=== PATIENT | female | born 1935 | race Caucasian/White ===

== ENCOUNTER 2018-07-29 01:22 | Observation (INO) ==
--- NOTE | 2018-07-29 01:25 | Emergency Department Note ---
Disposition Clinical Impression: Acute exacerbation of chronic obstructive airways disease Disposition: Admitted As Inpatient Condition: Fair General Adult HPI - General Stated complaint: bridgett Time Seen by Provider: 07/29/18 01:23 - Related Data Home Medications Medication Instructions Recorded Confirmed Losartan [Cozaar] 100 mg PO DAILY 01/07/15 07/30/18 Magnesium Oxide [Magnesium] 500 mg PO DAILY 02/24/16 07/30/18 Furosemide [Lasix] 20 mg PO DAILY 07/25/18 07/30/18 Gabapentin [Neurontin] 100 mg PO 0800,1500 07/25/18 07/30/18 Gabapentin [Neurontin] 100 mg PO HS 07/25/18 07/30/18 Glimepiride [Amaryl] 1 mg PO QAM 07/25/18 07/30/18 Nystatin POWDER [Nystop] 1 appl TP TID PRN 07/25/18 07/30/18 Oxybutynin [Ditropan] 5 mg PO TID 07/25/18 07/30/18 Zolpidem Tartrate 5 mg PO HS PRN 07/25/18 07/30/18 Albuterol Sulfate [Albuterol 2 puff IH Q6H PRN 07/29/18 07/30/18 Inhaler] Ascorbic Acid [Vitamin C] 500 mg PO DAILY 07/29/18 07/30/18 Aspirin [Lo-Dose Aspirin EC] 81 mg PO DAILY 07/29/18 07/30/18 Cyanocobalamin/Folic Acid [B-12 1 each SL DAILY 07/29/18 07/30/18 1,000 Mcg Sub Tablet] Multivitamin [Daily Multiple 1 each PO DAILY 07/29/18 07/30/18 Vitamin] Lactobacillus Combination No.8 1 cap PO DAILY 07/30/18 07/30/18 [Adult Probiotic] Previous Rx's Medication Instructions Recorded Budesonide/Formoterol 160/4.5 2 puff IH BIDR #1 hfa.aer.ad 07/25/18 [Symbicort 160/4.5] Carvedilol 3.125 mg PO BID #10 tab 07/30/18 Allergies Allergy/AdvReac Type Severity Reaction Status Date / Time doxycycline Allergy Rash Verified 10/08/17 14:23 Penicillins [PCN] Allergy Difficulty Verified 10/08/17 14:23 Breathing metformin AdvReac Diarrhea Verified 10/08/17 14:23 nitrofurantoin AdvReac Anaphylaxis Verified 10/08/17 14:23 sulfamethoxazole AdvReac Diarrhea Verified 10/08/17 14:23 [From Bactrim] trimethoprim [From Bactrim] AdvReac Diarrhea Verified 10/08/17 14:23 Past Medical History - Past Medical History Medical history: Reports: arthritis, diabetes, hyperlipidemia, hypertension, venous stasis, other Surgical history: Reports: cholecystectomy, herniorrhaphy, knee replacement, other Psychiatric history: Reports: anxiety, depression - Social History Smoking Status: Never smoker Smokeless Tobacco Status: No Alcohol use: Reports: none Drug use: Reports: none Course Vital Signs Temperature 98.8 F 07/29/18 01:26 Pulse Rate 86 07/29/18 01:26 Respiratory Rate 22 07/29/18 01:26 Blood Pressure 150/96 07/29/18 01:26 O2 Sat by Pulse Oximetry 93 07/29/18 01:26 Temperature 98.2 F 07/30/18 12:13 Pulse Rate 76 07/30/18 12:13 Respiratory Rate 16 07/30/18 12:13 Blood Pressure 164/82 07/30/18 12:13 O2 Sat by Pulse Oximetry 95 07/30/18 12:13 Oxygen Delivery Oxygen Delivery Nasal Cannula Medical Decision Making - Lab Data Result diagrams: 07/30/18 05:42 07/30/18 05:42 Lab Results 07/29/18 07/29/18 07/29/18 Range/Units 01:45 01:45 01:45 WBC 10.8 (4.3-11.1) K/mcL RBC 4.58 (3.82-4.97) M/mcL Hgb 12.9 (11.5-15.4) g/dL Hct 43.1 (35.3-44.9) % MCV 94.1 (83.0-100.0) fL MCH 28.2 (28.0-33.3) pg MCHC 29.9 L (31.6-35.5) g/dL RDW 14.5 (11.5-14.5) % Plt Count 263 (140-400) K/mcL MPV 9.1 L (9.4-12.4) fL Immature Gran % 0.6 (0-4) % Seg Neutrophils % 75.4 % Lymphocytes % 17.3 % Monocytes % 6.3 % Eosinophils % 0.3 % Basophils % 0.1 % Neutrophils # 8.2 (1.6-8.9) K/mcL Lymphocytes # 1.9 (0.6-4.6) K/mcL Monocytes # 0.7 (0.0-1.3) K/mcL Eosinophils # 0.0 (0.0-0.6) K/mcL Basophils # 0.0 (0.0-0.2) K/mcL Sodium 138 (136-145) mEq/L Potassium 4.8 (3.5-5.1) mEq/L Chloride 95 L (98-107) mEq/L Carbon Dioxide 38 H (23-29) mEq/L BUN 35 H (8-23) mg/dL Creatinine 0.93 (0.60-1.20) mg/dL Est GFR ( Amer) > 60 (> 60) Est GFR (Non-Af Amer) 58 L (> 60) BUN/Creatinine Ratio 38 H (6-26) Glucose 152 H (70-105) mg/dL Calculated Osmolality 297 (280-300) Calcium 9.8 (8.6-10.3) mg/dL Total Bilirubin (0.3-1.0) mg/dL Direct Bilirubin (0.0-0.2) mg/dL Indirect Bilirubin (0.0-1.2) mg/dL AST (13-39) Units/L ALT (7-52) Units/L Alkaline Phosphatase (34-104) Units/L Troponin I < 0.03 (< 0.04) ng/mL B-Natriuretic Peptide 79 (Less than 100) pg/mL Serum Total Protein (6.4-8.9) g/dL Albumin (3.5-5.7) g/dL Globulin (2.4-3.5) g/dL Albumin/Globulin Ratio (1.1-2.2) 07/29/18 Range/Units 01:45 WBC (4.3-11.1) K/mcL RBC (3.82-4.97) M/mcL Hgb (11.5-15.4) g/dL Hct (35.3-44.9) % MCV (83.0-100.0) fL MCH (28.0-33.3) pg MCHC (31.6-35.5) g/dL RDW (11.5-14.5) % Plt Count (140-400) K/mcL MPV (9.4-12.4) fL Immature Gran % (0-4) % Seg Neutrophils % % Lymphocytes % % Monocytes % % Eosinophils % % Basophils % % Neutrophils # (1.6-8.9) K/mcL Lymphocytes # (0.6-4.6) K/mcL Monocytes # (0.0-1.3) K/mcL Eosinophils # (0.0-0.6) K/mcL Basophils # (0.0-0.2) K/mcL Sodium (136-145) mEq/L Potassium (3.5-5.1) mEq/L Chloride (98-107) mEq/L Carbon Dioxide (23-29) mEq/L BUN (8-23) mg/dL Creatinine (0.60-1.20) mg/dL Est GFR ( Amer) (> 60) Est GFR (Non-Af Amer) (> 60) BUN/Creatinine Ratio (6-26) Glucose (70-105) mg/dL Calculated Osmolality (280-300) Calcium (8.6-10.3) mg/dL Total Bilirubin 0.3 (0.3-1.0) mg/dL Direct Bilirubin 0.0 (0.0-0.2) mg/dL Indirect Bilirubin 0.3 (0.0-1.2) mg/dL AST 20 (13-39) Units/L ALT 16 (7-52) Units/L Alkaline Phosphatase 60 (34-104) Units/L Troponin I (< 0.04) ng/mL B-Natriuretic Peptide (Less than 100) pg/mL Serum Total Protein 7.9 (6.4-8.9) g/dL Albumin 3.9 (3.5-5.7) g/dL Globulin 4.0 H (2.4-3.5) g/dL Albumin/Globulin Ratio 1.0 L (1.1-2.2) Attestation Statement - Attestation Attestation: I reviewed the residents documentation and agree with the residents assessment and plan of care. I have personally had face to face time with the patient. (Brief History, Brief Exam, and MDM) I personally supervised and was present for the peck/critical portions of the following procedures completed by the resident: (add procedures performed here). [id number] time provided Patient arrives from home by EMS complaining of dyspnea. She appears in no acute distress upon arrival. She was evaluated in conjunction with the resident physician. I attest a supervising the resident physician's interpretation of the ECG
[2018-07-29] MEDS ORDERED: methylPREDNISolone 125 MG/2 ML VIAL IVP ONE (01:29)
[2018-07-29] MEDS ORDERED: Ipratropium/Albuterol Neb 3 ML IH ONE (01:29)
--- NOTE | 2018-07-29 01:34 | Emergency Department Note ---
Disposition Clinical Impression: Acute exacerbation of chronic obstructive airways disease Disposition: Admitted As Inpatient Condition: Fair Time of Disposition: 08:46 General Adult HPI - General Stated complaint: bridgett Time Seen by Provider: 07/29/18 01:23 Source: patient, EMS Mode of arrival: EMS Limitations: no limitations Nursing Notes Reviewed: Yes Vital Signs Reviewed: Yes - History of Present Illness HPI Narrative: 82-year-old female past medical history of COPD and diabetes 3-4 day history of gradually progressive worsening dyspnea Patient states that tonight before going to bed and shortness of breath suddenly became worse Patient transported ED via EMS given 1 DuoNeb in route EMS states patient was an 80% range on room air at home prior to DuoNeb Post DuoNeb oxygen saturations in the high 90% range Patient does not wear home oxygen continuously Patient denies recent fever/chills, new neck or back pain, chest pain, abdominal pain/nausea/vomiting, blood in her urine or stool, numbness or paresthesias. Onset (ago): day(s) Consistency: Worsening Improves with: medication Associated symptoms: Reports: denies other symptoms - Related Data Home Medications Medication Instructions Recorded Confirmed Losartan [Cozaar] 100 mg PO DAILY 01/07/15 07/29/18 Magnesium Oxide [Magnesium] 500 mg PO DAILY 02/24/16 07/25/18 Furosemide [Lasix] 20 mg PO DAILY 07/25/18 07/29/18 Gabapentin [Neurontin] 100 mg PO 0800,1500 07/25/18 07/29/18 Gabapentin [Neurontin] 300 mg PO HS 07/25/18 07/29/18 Glimepiride [Amaryl] 1 mg PO DAILY 07/25/18 07/29/18 Nystatin POWDER [Nystop] 1 appl TP TID PRN 07/25/18 07/25/18 Oxybutynin [Ditropan] 5 mg PO TID 07/25/18 07/29/18 Zolpidem Tartrate 5 mg PO HS PRN 07/25/18 07/29/18 Albuterol Sulfate [Albuterol 2 puff IH Q6H PRN 07/29/18 07/29/18 Inhaler] Ascorbic Acid [Vitamin C] 500 mg PO DAILY 07/29/18 07/29/18 Aspirin 81 mg PO DAILY 07/29/18 07/29/18 Multivitamin Women 50 Plus Tab 1 tab PO DAILY 07/29/18 07/29/18 Probiotic 1 cap PO DAILY 07/29/18 07/29/18 Vitamin B12 1,000 mcg PO DAILY 07/29/18 07/29/18 Previous Rx's Medication Instructions Recorded Budesonide/Formoterol 160/4.5 2 puff IH BIDR #1 hfa.aer.ad 07/25/18 [Symbicort 160/4.5] predniSONE [PredniSONE] 40 mg PO DAILY #10 tablet 07/25/18 Allergies Allergy/AdvReac Type Severity Reaction Status Date / Time doxycycline Allergy Rash Verified 10/08/17 14:23 Penicillins [PCN] Allergy Difficulty Verified 10/08/17 14:23 Breathing metformin AdvReac Diarrhea Verified 10/08/17 14:23 nitrofurantoin AdvReac Anaphylaxis Verified 10/08/17 14:23 sulfamethoxazole AdvReac Diarrhea Verified 10/08/17 14:23 [From Bactrim] trimethoprim [From Bactrim] AdvReac Diarrhea Verified 10/08/17 14:23 All systems ED: reviewed and negative except as stated. Review of Systems: As Per HPI Constitutional: Denies: fever, chills Cardiovascular: Denies: chest pain Respiratory: Reports: dyspnea Gastrointestinal: Denies: abdominal pain, nausea, vomiting, hematochezia Genitourinary: Denies: hematuria Musculoskeletal: Denies: back pain, neck pain Neurological: Denies: headache, weakness, numbness, paresthesias Past Medical History - Past Medical History Medical history: Reports: arthritis, diabetes, hyperlipidemia, hypertension, venous stasis, other Surgical history: Reports: cholecystectomy, herniorrhaphy, knee replacement, other Psychiatric history: Reports: anxiety, depression - Social History Smoking Status: Never smoker Smokeless Tobacco Status: No Alcohol use: Reports: none Drug use: Reports: none Physical Exam - General Limitations: no limitations General appearance: alert, in no apparent distress - Head Head exam: atraumatic, normocephalic, normal inspection - Eye Eye exam: Present: normal appearance, PERRL, EOMI. Absent: scleral icterus - Neck Neck exam: Present: normal inspection, trachea midline - Chest Chest inspection: Present: normal inspection, symmetric chest wall rise - Respiratory Respiratory exam: Present: normal lung sounds bilaterally, wheezes (Diffuse expiratory wheezes). Absent: respiratory distress, stridor, accessory muscle use, prolonged expiratory phase - Cardiovascular Cardiovascular exam: Present: regular rate, normal rhythm, normal heart sounds, +S1, +S2. Absent: systolic murmur, diastolic murmur, JVD, +S3, +S4 - Abdominal Exam Abdominal exam: Present: soft, Non-Tender, normal bowel sounds. Absent: distention, guarding, rebound, rigidity, organomegaly - Extremities Exam Extremities exam: Present: pedal edema (Nonpitting edema noted in bilateral lower extremities. Patient has leg wraps on stating that she has cellulitis which is currently being managed on an outpatient basis.). Absent: tenderness - Neurological Exam Neurological exam: Present: alert, oriented X3 - Psychiatric Psychiatric exam: Present: normal affect, normal mood - Skin Skin exam: Present: warm, dry, intact, normal color. Absent: rash, cyanosis, di aphoresis, erythema, pallor, mottled Course Course Narrative: CBC, BMP, hepatic panel BNP, troponin EKG/old EKG, 2 view chest x-ray DuoNeb's for management of patient's symptoms We will reassess - Reevaluation(s) Reevaluation #1: Patient's son now bedside Patient's son concerned that patient was "talking gibberish" at home prior to calling ambulance Patient has been alert and oriented since presentation to the ED Vital Signs Temperature 98.8 F 07/29/18 01:26 Pulse Rate 86 07/29/18 01:26 Respiratory Rate 22 07/29/18 01:26 Blood Pressure 150/96 07/29/18 01:26 O2 Sat by Pulse Oximetry 93 07/29/18 01:26 Temperature 97.8 F 07/29/18 06:06 Pulse Rate 81 07/29/18 06:06 Respiratory Rate 18 07/29/18 06:06 Blood Pressure 156/64 07/29/18 06:06 O2 Sat by Pulse Oximetry 96 07/29/18 06:06 Oxygen Delivery Oxygen Delivery Nasal Cannula Medical Decision Making - MDM Narrative Medical decision making narrative: Patient with mild vascular congestion on CXR Laboratory results negative for acute pathology Patient continues to require O2 therapy in ED with in continued increased WOB Patient will be admitted to hospitalist medicine service for further evaluation and management of COPD. - Lab Data Lab results reviewed: Yes I reviewed the patient's lab results. Result diagrams: 07/29/18 01:45 07/29/18 01:45 Lab Results 07/29/18 07/29/18 07/29/18 Range/Units 01:45 01:45 01:45 WBC 10.8 (4.3-11.1) K/mcL RBC 4.58 (3.82-4.97) M/mcL Hgb 12.9 (11.5-15.4) g/dL Hct 43.1 (35.3-44.9) % MCV 94.1 (83.0-100.0) fL MCH 28.2 (28.0-33.3) pg MCHC 29.9 L (31.6-35.5) g/dL RDW 14.5 (11.5-14.5) % Plt Count 263 (140-400) K/mcL MPV 9.1 L (9.4-12.4) fL Immature Gran % 0.6 (0-4) % Seg Neutrophils % 75.4 % Lymphocytes % 17.3 % Monocytes % 6.3 % Eosinophils % 0.3 % Basophils % 0.1 % Neutrophils # 8.2 (1.6-8.9) K/mcL Lymphocytes # 1.9 (0.6-4.6) K/mcL Monocytes # 0.7 (0.0-1.3) K/mcL Eosinophils # 0.0 (0.0-0.6) K/mcL Basophils # 0.0 (0.0-0.2) K/mcL Sodium 138 (136-145) mEq/L Potassium 4.8 (3.5-5.1) mEq/L Chloride 95 L (98-107) mEq/L Carbon Dioxide 38 H (23-29) mEq/L BUN 35 H (8-23) mg/dL Creatinine 0.93 (0.60-1.20) mg/dL Est GFR ( Amer) > 60 (> 60) Est GFR (Non-Af Amer) 58 L (> 60) BUN/Creatinine Ratio 38 H (6-26) Glucose 152 H (70-105) mg/dL Calculated Osmolality 297 (280-300) Calcium 9.8 (8.6-10.3) mg/dL Total Bilirubin (0.3-1.0) mg/dL Direct Bilirubin (0.0-0.2) mg/dL Indirect Bilirubin (0.0-1.2) mg/dL AST (13-39) Units/L ALT (7-52) Units/L Alkaline Phosphatase (34-104) Units/L Troponin I < 0.03 (< 0.04) ng/mL B-Natriuretic Peptide 79 (Less than 100) pg/mL Serum Total Protein (6.4-8.9) g/dL Albumin (3.5-5.7) g/dL Globulin (2.4-3.5) g/dL Albumin/Globulin Ratio (1.1-2.2) 07/29/18 Range/Units 01:45 WBC (4.3-11.1) K/mcL RBC (3.82-4.97) M/mcL Hgb (11.5-15.4) g/dL Hct (35.3-44.9) % MCV (83.0-100.0) fL MCH (28.0-33.3) pg MCHC (31.6-35.5) g/dL RDW (11.5-14.5) % Plt Count (140-400) K/mcL MPV (9.4-12.4) fL Immature Gran % (0-4) % Seg Neutrophils % % Lymphocytes % % Monocytes % % Eosinophils % % Basophils % % Neutrophils # (1.6-8.9) K/mcL Lymphocytes # (0.6-4.6) K/mcL Monocytes # (0.0-1.3) K/mcL Eosinophils # (0.0-0.6) K/mcL Basophils # (0.0-0.2) K/mcL Sodium (136-145) mEq/L Potassium (3.5-5.1) mEq/L Chloride (98-107) mEq/L Carbon Dioxide (23-29) mEq/L BUN (8-23) mg/dL Creatinine (0.60-1.20) mg/dL Est GFR ( Amer) (> 60) Est GFR (Non-Af Amer) (> 60) BUN/Creatinine Ratio (6-26) Glucose (70-105) mg/dL Calculated Osmolality (280-300) Calcium (8.6-10.3) mg/dL Total Bilirubin 0.3 (0.3-1.0) mg/dL Direct Bilirubin 0.0 (0.0-0.2) mg/dL Indirect Bilirubin 0.3 (0.0-1.2) mg/dL AST 20 (13-39) Units/L ALT 16 (7-52) Units/L Alkaline Phosphatase 60 (34-104) Units/L Troponin I (< 0.04) ng/mL B-Natriuretic Peptide (Less than 100) pg/mL Serum Total Protein 7.9 (6.4-8.9) g/dL Albumin 3.9 (3.5-5.7) g/dL Globulin 4.0 H (2.4-3.5) g/dL Albumin/Globulin Ratio 1.0 L (1.1-2.2) - Radiology Data Radiology results reviewed: Yes I reviewed the patient's radiology results. Chest X-Ray 07/29/18 01:31 IMPRESSION: 1. Cardiomegaly with mild vascular congestion. D/ / Toni Paredes MD / Toni Paredse MD Interpreting Provider: Toni Paredes MD - EKG Data EKG #1 EKG attestation: Yes I reviewed and interpreted this EKG. EKG results narrative: Patient EKG shows a sinus rhythm with a supraventricular bigeminal rhythm with a heart rate of 80 bpm, [place] interval of 153 ms, QRS duration of 87 ms, QT/QTc interval 364/420 ms respectively.There are no significant ST segment elevations, depressions, pathologic Q waves, abnormal T-wave inversions, or any other signs of acute ischemic change. At this time there is no prior EKG available for comparison
[2018-07-29 01:57] LABS: Basophils % 0.1 %; Eosinophils % 0.3 %; Hematocrit 43.1 % (35.3-44.9); Hemoglobin 12.9 g/dL (11.5-15.4); Immature Granulocytes % 0.6 % (0-4); Lymphocytes # 1.9 K/mcL (0.6-4.6); Lymphocytes % 17.3 %; Mean Corpuscular HGB Conc 29.9 g/dL (31.6-35.5); Mean Corpuscular Hemoglobin 28.2 pg (28.0-33.3); Mean Corpuscular Volume 94.1 fL (83.0-100.0); Mean Platelet Volume 9.1 fL (9.4-12.4); Monocytes # 0.7 K/mcL (0.0-1.3); Monocytes % 6.3 %; Neutrophils # 8.2 K/mcL (1.6-8.9); Platelet Count 263 K/mcL (140-400); Red Blood Count 4.58 M/mcL (3.82-4.97); Red Cell Distribution Width 14.5 % (11.5-14.5); Segmented Neutrophils % 75.4 %
[2018-07-29 02:17] LABS: BUN/Creatinine Ratio 38 (6-26); Blood Urea Nitrogen 35 mg/dL (8-23); Calcium 9.8 mg/dL (8.6-10.3); Carbon Dioxide 38 mEq/L (23-29); Chloride 95 mEq/L (98-107); Glucose 152 mg/dL (70-105); Osmolality,Calculated 297 (280-300); Potassium 4.8 mEq/L (3.5-5.1); Sodium 138 mEq/L (136-145); eGFR For Non-African Americans 58 (> 60)
[2018-07-29 02:18] LABS: Troponin I < 0.03 ng/mL (< 0.04)
[2018-07-29 02:20] LABS: Albumin 3.9 g/dL (3.5-5.7); Bilirubin,Indirect 0.3 mg/dL (0.0-1.2); Bilirubin,Total 0.3 mg/dL (0.3-1.0); Total Protein 7.9 g/dL (6.4-8.9)
--- NOTE | 2018-07-29 07:41 | Internal Med History&Physical ---
<Randy Carroll - Last Filed: 07/29/18 14:57> Date of Encounter: 07/29/18 Time of Encounter: 07:41 Internal Medicine - H&P: HPI Chief complaint: Shortness of breath Admitted From: Emergency Dept Plans for Post Hospital Care: Home History of present illness: Ms. Mo is a 82 year old female with past medical history of diabetes, hyperlipidemia, hypertension, chronic venous stasis who presents to emergency room with complaint of shortness of breath. She states that her shortness of breath has been present times about 5 days and is now been improving. She was notably seen in the emergency department on 07/25/18 and diagnosed with suspected COPD exacerbation and was discharged that afternoon on steroid and azithromycin 5 days. Patient does admit to associated symptoms of cough with yellow sputum which is near her baseline. She also admits to orthopnea but denies PND. Denies any symptoms of fevers, chills, chest pain, nausea, vomiting, numbness, tingling. She does have home inhalers which she has been using with minimal relief. She states that she uses home oxygen as needed since this last admission. Upon presentation to the emergency room vital signs were significant for a blood pressure of 156/64 and she was tolerating 96% oxygen on 2 L. Laboratory results showed a baseline anemia, potassium 4.8, glucose 152. Chest x-ray showed evidence of cardiomegaly with mild pulmonary vascular congestion. She was given Solu-Medrol in the emergency department and admitted for further evaluation and management. Past medical history as above Surgical history: Cholecystectomy, hysterectomy, urostomy Social history: Never smoker, denies alcohol or drug use Family history: Noncontributory Past Med Surg Social Fam HX - Past Medical History Medical history: arthritis, diabetes, hyperlipidemia, hypertension, venous st asis, other Additional medical history: Skin Cancer, Obesity Psychiatric history: anxiety, depression - Past Surgical History Surgical History: cholecystectomy, hysterectomy Additional surgical history: Urostomy, - Social History Smoking Status: Never smoker Smokeless Tobacco Status: No Alcohol use: none Drug use: none - Family History Father Living Status: Hx Family Cardiac Disorders: Yes Hx Family Respiratory Disorders: No Hx Family Cancer: Yes (Leukemia) Hx Family GI Disorders: No Hx Family Endocrine Disorder: Yes Hx Family Neuromuscular Disorders: No Hx Family Neurologic Disorders: No Hx Family HEENT Disorders: No Hx Family Autoimmune Disorders: No Mother Adopted: Yes Living Status: Hx Family Cardiac Disorders: Yes Hx Family Respiratory Disorders: No Hx Family Cancer: Yes (Multiple myeloma) Hx Family GI Disorders: No Hx Family Endocrine Disorder: Yes Hx Family Neuromuscular Disorders: No Hx Family Neurologic Disorders: No Hx Family HEENT Disorders: No Hx Family Autoimmune Disorders: No Sister Living Status: Hx Family Cancer: Yes (Brain tumor) Internal Medicine - H&P: Meds Losartan [Cozaar] 100 mg PO DAILY 01/07/15 [History] Magnesium Oxide [Magnesium] 500 mg PO DAILY 02/24/16 [History] Budesonide/Formoterol 160/4.5 [Symbicort 160/4.5] 2 puff IH BIDR #1 hfa.aer.[email or web address] 07/25/18 [Rx] Furosemide [Lasix] 20 mg PO DAILY 07/25/18 [History] Gabapentin [Neurontin] 100 mg PO 0800,1500 07/25/18 [History] Gabapentin [Neurontin] 300 mg PO HS 07/25/18 [History] Glimepiride [Amaryl] 1 mg PO DAILY 07/25/18 [History] Nystatin POWDER [Nystop] 1 appl TP TID PRN 07/25/18 [History] Oxybutynin [Ditropan] 5 mg PO TID 07/25/18 [History] Zolpidem Tartrate 5 mg PO HS PRN 07/25/18 [History] predniSONE [PredniSONE] 40 mg PO DAILY #10 tablet 07/25/18 [Rx] Albuterol Sulfate [Albuterol Inhaler] 2 puff IH Q6H PRN 07/29/18 [History] Ascorbic Acid [Vitamin C] 500 mg PO DAILY 07/29/18 [History] Aspirin 81 mg PO DAILY 07/29/18 [History] Multivitamin Women 50 Plus Tab 1 tab PO DAILY 07/29/18 [History] Probiotic 1 cap PO DAILY 07/29/18 [History] Vitamin B12 1,000 mcg PO DAILY 07/29/18 [History] Allergy/AdvReac Type Severity Reaction Status Date / Time doxycycline Allergy Rash Verified 10/08/17 14:23 Penicillins [PCN] Allergy Difficulty Verified 10/08/17 14:23 Breathing metformin AdvReac Diarrhea Verified 07/16/18 14:23 nitrofurantoin AdvReac Anaphylaxis Verified 10/08/17 14:23 sulfamethoxazole AdvReac Diarrhea Verified 10/08/17 14:23 [From Bactrim] trimethoprim [From Bactrim] AdvReac Diarrhea Verified 10/08/17 14:23 All Systems PM: A 10-system review of systems was performed and is negative for pertinent findings except as documented above in the HPI. Review of systems: - Constitutional: Denies fevers, chills, weight loss, generalized fatigue - Head/Neck: Denies VELAZQUEZ, neck stiffness - EENT: Denies vision changes/blurriness, rhinorrhea, congestion, sore throat - CVS: Admits to orthopnea, edema. Denies chest pain, palpitations, , PND, - Pulm: Admits to shortness of breath, cough, sputum. Denies hematemesis, wheezing - GI: Denies abdominal pain, anorexia, nausea, vomiting, diarrhea, constipation, melena - : Denies dysuria, increased frequency, urgency, hematuria, - Skin: Denies rashes, ulcers, color changes, - Neuro: Denies VELAZQUEZ, paresthesias, focal deficits - Constitutional Vitals: Temp Pulse Resp BP Pulse Ox 97.8 F 81 18 156/64 96 07/29/18 06:06 07/29/18 06:06 07/29/18 06:06 07/29/18 06:06 07/29/18 06:06 Exam: Gen.: Vitals noted. No acute distress. AAOx3, resting comfortably in bed. Morbidly obese , lethargic HEENT: EOMI, oropharynx clear, Normocephalic, atraumatic, MMM Cardiac: RRR, no murmur, +S1/S2, trace BLE edema Pulmonary: Diffuse rhonchi present. equal chest expansion, unlabored breathing Abdomen: soft, nontender, BS noted, no guarding, no palpable HSM Skin: warm and dry, bilateral lower extremities with changes of chronic venous stasis with ulcerations. MSK: ROM intact, no joint swelling noted, gait no assessed while in bed. Non tender calf or clubbing Neuro: A&Ox3, moves all extremities, no focal deficits, sensation intact Psych: Appropriate mood and behavior, AOx3 Internal Med - H&P Results - Labs CBC & Chem 7: 07/29/18 01:45 07/29/18 01:45 Labs: Short CBC 07/29/18 Range/Units 01:45 WBC 10.8 (4.3-11.1) K/mcL Hgb 12.9 (11.5-15.4) g/dL Hct 43.1 (35.3-44.9) % Plt Count 263 (140-400) K/mcL Neutrophils # 8.2 (1.6-8.9) K/mcL BMP 07/29/18 01:45 Sodium 138 Potassium 4.8 Chloride 95 L Carbon Dioxide 38 H BUN 35 H Creatinine 0.93 Glucose 152 H Calcium 9.8 Cardiac Enzymes 07/29/18 Range/Units 01:45 Troponin I < 0.03 (< 0.04) ng/mL Liver Function 07/29/18 Range/Units 01:45 Total Bilirubin 0.3 (0.3-1.0) mg/dL Direct Bilirubin 0.0 (0.0-0.2) mg/dL AST 20 (13-39) Units/L ALT 16 (7-52) Units/L Alkaline Phosphatase 60 (34-104) Units/L Albumin 3.9 (3.5-5.7) g/dL - Impressions ITS Impressions Chest X-Ray 07/29/18 01:31 IMPRESSION: 1. Cardiomegaly with mild vascular congestion. D/ / Toni Paredes MD / Toni Paredes MD Interpreting Provider: Toni Paredes MD - Assessment and Plan (1) Acute and chronic respiratory failure Current Visit: Yes Status: Acute Assessment and plan: - Acute on chronic respiratory failure with evidence of hypoxia requiring 2 L of oxygen via nasal cannula - Suspected etiology CHF exacerbation in the setting of known history of chronic COPD - Given symptoms of orthopnea, cough at baseline and chest x-ray findings suspect that this is more likely related to CHF - Previously treated on 07/25/18 for suspected COPD exacerbation, will complete 5th day of prednisone and azithromycin today. - Patient does not have an echocardiogram at this facility - Chest x-ray performed shows cardiomegaly with mild pulmonary vascular congestion - BNP of 92 upon admission however patient is morbidly obese - No evidence of fever, leukocytosis to suggest infectious etiology Plan - We will diuresis with 40 mg Lasix IV twice a day, day #1 - Fluid restriction diet, strict I's and O's - We will obtain echocardiogram - Supplemental oxygen as necessary - We will complete course of steroids and azithromycin with final dose of today. - Continue bronchodilators both scheduled and as needed - Suspect that this is most likely chronic in nature given morbid obesity and comorbidities, however if echocardiogram reveals significant changes may require inpatient ischemic evaluation.--Trending troponins Qualifiers: Respiratory failure complication: hypoxia Qualified Code(s): J96.21 - Acute and chronic respiratory failure with hypoxia (2) Congestive heart failure Current Visit: Yes Status: Suspected Assessment and plan: - Suspect that this acute on chronic in nature - Management as above Qualifiers: Heart failure type: diastolic Heart failure chronicity: acute on chronic Qualified Code(s): I50.33 - Acute on chronic diastolic (congestive) heart failure (3) COPD (chronic obstructive pulmonary disease) Current Visit: Yes Status: Chronic Assessment and plan: - Acute exacerbation, further management as above We will complete treatment for previous exacerbation as above. 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 insulin use: without termite control service representative use Diabetes mellitus complication status: with hyperglycemia Qualified Code(s): E11.65 - Type 2 diabetes mellitus with hyperglycemia (5) Hypertension Current Visit: Yes Status: Chronic Assessment and plan: - Mildly elevated at 156/64 - We will continue home antihypertensives once reconciled Qualifiers: Hypertension type: essential hypertension Qualified Code(s): I10 - Essential (primary) hypertension (6) Hyperlipidemia Current Visit: Yes Status: Chronic Assessment and plan: Continue home statin Qualifiers: Hyperlipidemia type: unspecified Qualified Code(s): E78.5 - Hyperlipidemia, unspecified (7) Stasis dermatitis of both legs Current Visit: Yes Status: Chronic Assessment and plan: - Chronic issue, continue management as outpatient - Wound care consulted (8) DVT prophylaxis Current Visit: Yes Status: Acute Assessment and plan: - Subcutaneous heparin - Time Spent With Patient Total time spent is greater than 50% in coordination of care (as documented) at patient's floor/unit and/or counseling patient: <EdwardjanuszDejuan,Valerie Sadaf - Last Filed: 07/29/18 16:11> Date of Encounter: 07/29/18 Internal Medicine - H&P: HPI History of present illness: Ms. Mo is a 82 year old female All Systems PM: A 10-system review of systems was performed and is negative for pertinent findings except as documented above in the HPI. - Constitutional Vitals: Temp Pulse Resp BP Pulse Ox 97.8 F 81 18 156/64 96 07/29/18 06:06 07/29/18 06:06 07/29/18 06:06 07/29/18 06:06 07/29/18 06:06 Internal Med - H&P Results - Labs CBC & Chem 7: 07/29/18 01:45 07/29/18 01:45 Labs: Short CBC 07/29/18 Range/Units 01:45 WBC 10.8 (4.3-11.1) K/mcL Hgb 12.9 (11.5-15.4) g/dL Hct 43.1 (35.3-44.9) % Plt Count 263 (140-400) K/mcL Neutrophils # 8.2 (1.6-8.9) K/mcL BMP 07/29/18 01:45 Sodium 138 Potassium 4.8 Chloride 95 L Carbon Dioxide 38 H BUN 35 H Creatinine 0.93 Glucose 152 H Calcium 9.8 Cardiac Enzymes 07/29/18 07/29/18 Range/Units 01:45 08:11 Troponin I < 0.03 < 0.03 (< 0.04) ng/mL Liver Function 07/29/18 Range/Units 01:45 Total Bilirubin 0.3 (0.3-1.0) mg/dL Direct Bilirubin 0.0 (0.0-0.2) mg/dL AST 20 (13-39) Units/L ALT 16 (7-52) Units/L Alkaline Phosphatase 60 (34-104) Units/L Albumin 3.9 (3.5-5.7) g/dL - Impressions ITS Impressions Chest X-Ray 07/29/18 01:31 IMPRESSION: 1. Cardiomegaly with mild vascular congestion. D/ / Toni Paredes MD / Toni Paredes MD Interpreting Provider: Toin Paredes MD - Time Spent With Patient Total time spent is greater than 50% in coordination of care (as documented) at patient's floor/unit and/or counseling patient: - Attending Attestation I examined this patient and my medical decision-making was reviewed with the Resident Physician Dr Carroll. I agree with the documented findings, disposition and treatment plan as described except to the extent set forth below. Ms Mo is being observed for acute resp failure awake, pleasant, has not had sob since being put on oxygen. chronic cough, green sputum at baseline, + wheezing, chronic orthopnea at baseline. no associated fevers chills, cp, pressure or palpitations. no n/v or diaphroesis. no sick contacts. She has pmhx copd, denies hx chf, not on o2 at home. recent dc from obs unit 07/25 for copde. dc summary notes she was sent home with home o2, though she states she wasnt wearing it? or didn't have it? she is unclear. addl med hx includes DM, HTN, anxiety, depression. surg hx- cholecystectomy, hernia repair, knee repalcement urostomy fam hx father uk cardiac disease, mother uk cardiac disease cv- no cp, pressure, palpitations, + orthopnea at baseline, chronic venous stasis and le edema at baseline abd- no abd pain, n/v/d/constipation, no gi bleeding skin- chronic leg wounds, she notes hx cellulitis, denies changes and that legs are better than they have been neuro- alert, no confusion, no weakness, numbness, tingling, presyncope or syncope gen- alert, awake,appears stated age, obese eyes- pupils equal round cv- reg rate and rhythm, normal s1,s2, no murmurs appreciated, no pitting le edema present, hard to discern if jvd given neck circumference, none appreciated lungs- ctabl, no wheezing, rhonchi or crackles, diminished bl bases, normal reps effort on o2 nc abd- soft, non tender, non distended, + bs neuro- AAOx3, CN grossly intact, no focal deficits Acute on chronic resp failure with hypoxia Suspect possible CHF exacerbation, no prior hx of chf, vs unresolved COPDE CXR with mild pulm vasc congestion EKG reviewed fabián cute ischemic changes, EKG this morning has no bigeminy as noted on ED EKG -02 nc -w?? sent with o2 on 07/25 dc--sw consulted -trend trops, check bnp, check echo, monitor i/o -iv lasix trial -cont home inhalers, nebs, completes azithro today, cont prednisone (was on burst outpt) -echo reviewed mild diastolic CHF, normal EF, of note there is moderate to severe mitral stenosis--will consult cards this admission to eval Chronic BL LE stasis and wounds- wound care Bigeminy in ED resolved- am ekg reviewed, there is no bigeminy, monitor lytes with diuresis HTN with elevated BPs above goal- cont home meds, monitor will have to fu outpt vte ppx sqh further diagnoses and plan as noted by resident
[2018-07-29] MEDS ORDERED: Ipratropium Neb 0.5 MG NEBULIZER IH PRN (07:42)
[2018-07-29] MEDS ORDERED: Ondansetron 4 MG/2 ML VIAL IVP PRN (07:55)
[2018-07-29] MEDS ORDERED: Naloxone 0.4 MG/ML INJ IVP PRN ×2 (07:55)
[2018-07-29] MEDS ORDERED: *HR* HYDROcodone/Acet 5/325 mg TABLET PO PRN (07:55)
[2018-07-29] MEDS ORDERED: Acetaminophen 325 MG TABLET PO PRN (07:55)
[2018-07-29] MEDS ORDERED: Albuterol 2.5 MG/3 ML NEBULIZER IH PRN (07:58)
[2018-07-29] MEDS ORDERED: *HR* Dextrose 50 % in Water (Syg) 50 ML SYRINGE IVP PRN (08:00)
[2018-07-29] MEDS ORDERED: D5% in Water 1,000 ML IVC PRN (08:00)
[2018-07-29] MEDS ORDERED: Dextrose Gel 15 GM/37.5 ML TUBE PO PRN ×2 (08:00)
[2018-07-29 08:50] LABS: Magnesium 2.3 mg/dL (1.6-2.6); Troponin I < 0.03 ng/mL (< 0.04)
[2018-07-29] MEDS ORDERED: predniSONE 20 MG TABLET PO SCH (09:00)
[2018-07-29] MEDS: Insulin LISPRO 300 UNITS/3 ML VIAL SQ SCH ×3 (09:06→16:12)
[2018-07-29] MEDS: Furosemide 40 MG/4 ML VIAL IVP SCH ×2 (09:07→16:37)
[2018-07-29] MEDS: Gabapentin 100 MG CAPSULE PO SCH ×2 (09:08→16:37)
[2018-07-29] MEDS: Aspirin 81 MG TAB.CHEW PO SCH (09:08)
[2018-07-29] MEDS: *HR* Heparin 5,000 UNIT/ML VIAL SQ SCH ×3 (09:08→21:37)
--- NOTE | 2018-07-29 09:41 | Electrocardiograph Report ---
[place] [id number] Test Date: 2018-07-29 Pat Name: Loida Mo Department: EXAM2 Room: 3B Gender: F Mine Analyst: : [id number] Requested By: Alexander Hernandez Order Number: [id number] Reading MD: Jacquie Cardona Measurements Intervals Bruce Rate: 80 P: 62 MO: 153 QRS: 76 QRSD: 87 T: 50 QT: 364 QTc: 420 Interpretive Statements Sinus rhythm Premature atrial complexes Electronically Signed On 07-29-2018 9:40:37 EDT by Jacquie Cardona
[2018-07-29] MEDS: Ipratropium/Albuterol Neb 3 ML IH SCH ×4 (10:03→21:48)
[2018-07-29] MEDS: Budesonide/Formoterol 160/4.5 1 PUFF INH IH SCH ×2 (10:03→21:48)
[2018-07-29 10:04] LABS: Estimated Average Glucose 189 mg/dl; Hemoglobin A1C 8.2 %
[2018-07-29] MEDS ORDERED: Azithromycin 250 MG TABLET PO ONE (10:26)
[2018-07-29] MEDS ORDERED: Insulin LISPRO 300 UNITS/3 ML VIAL SQ SCH ×2 (11:30→21:00)
[2018-07-29 18:25] LABS: Bilirubin,Urine Negative (Negative); Blood,Urine Moderate (Negative); Clarity,Urine Clear (Clear); Color,Urine Yellow (Yellow); Glucose,Urine (UA) Normal (Normal); Ketones,Urine Negative (Negative); Leukocyte Esterase,Urine Small (Negative); Nitrite,Urine Negative (Negative); PH,Urine 6.5 pH Units (5.0-8.0); Protein,Urine Negative (Neg-Trace); Specific Gravity,Urine 1.009 (1.010-1.025); Urobilinogen,Urine Normal (Normal)
[2018-07-29 18:28] LABS: Bacteria,Urine Few per hpf (None-Few); Hyaline Casts,Urine None Seen per lpf (None-Few); RBC,Urine 30-50 per hpf (0-3); Squamous Epithelial Cell,Urine Many per lpf (None-Few)
[2018-07-29] MEDS ORDERED: Gabapentin 300 MG CAPSULE PO SCH (21:00)
[2018-07-29] MEDS ORDERED: Gabapentin 100 MG CAPSULE PO SCH (22:30)
[2018-07-30] MEDS: Ipratropium/Albuterol Neb 3 ML IH SCH ×3 (03:50→16:04)
[2018-07-30] MEDS: *HR* Heparin 5,000 UNIT/ML VIAL SQ SCH ×2 (05:43→13:26)
[2018-07-30 06:22] LABS: Basophils % 0.2 %; Eosinophils % 0.1 %; Hematocrit 41.3 % (35.3-44.9); Hemoglobin 12.2 g/dL (11.5-15.4); Immature Granulocytes % 0.7 % (0-4); Lymphocytes # 1.7 K/mcL (0.6-4.6); Lymphocytes % 17.5 %; Mean Corpuscular HGB Conc 29.5 g/dL (31.6-35.5); Mean Corpuscular Volume 94.7 fL (83.0-100.0); Mean Platelet Volume 9.4 fL (9.4-12.4); Monocytes # 0.8 K/mcL (0.0-1.3); Monocytes % 7.9 %; Neutrophils # 7.3 K/mcL (1.6-8.9); Platelet Count 257 K/mcL (140-400); Red Blood Count 4.36 M/mcL (3.82-4.97); Red Cell Distribution Width 14.2 % (11.5-14.5); Segmented Neutrophils % 73.6 %
[2018-07-30 06:51] LABS: BUN/Creatinine Ratio 43 (6-26); Blood Urea Nitrogen 36 mg/dL (8-23); Calcium 9.4 mg/dL (8.6-10.3); Carbon Dioxide 42 mEq/L (23-29); Chloride 94 mEq/L (98-107); Glucose 151 mg/dL (70-105); Osmolality,Calculated 303 (280-300); Potassium 4.3 mEq/L (3.5-5.1); Sodium 141 mEq/L (136-145); eGFR For Non-African Americans > 60 (> 60)
[2018-07-30] MEDS ORDERED: Furosemide 20 MG TABLET PO PRN (09:46)
[2018-07-30] MEDS: Aspirin 81 MG TAB.CHEW PO SCH (10:19)
[2018-07-30] MEDS: Gabapentin 100 MG CAPSULE PO SCH ×2 (10:20→13:48)
[2018-07-30] MEDS: Insulin LISPRO 300 UNITS/3 ML VIAL SQ SCH ×3 (10:20→16:51)
[2018-07-30] MEDS: Budesonide/Formoterol 160/4.5 1 PUFF INH IH SCH (11:05)
--- NOTE | 2018-07-30 11:09 | Cardiology Consult Note ---
<Karoline Leigh - Last Filed: 07/30/18 10:58> Date of Encounter: 07/30/18 Time of Encounter: 09:45 Assessment and Plan (1) Congestive heart failure Current Visit: Yes Status: Suspected Per cardiology: -Admitted with shortness of breath. -Chest x-ray with mild pulmonary vascular congestion. -BNP was within normal limits. -Patient was started on IV lasix, currently net negative 2.1L, now on PO lasix. -Weight decreased and patient states symptoms have improved. -TTE with LVEF 65-70%, mild concentric LVH, mild diastolic dysfunction, severely dilated left atrium, mild-moderate AR, moderate-severe MS, mild MR, mild NJ, moderate PH, no wall motion abnormalities noted. -Strict i/os, fluid restriction, daily weights. -CHF education reviewed with patient. Qualifiers: Heart failure type: diastolic Heart failure chronicity: acute on chronic Qualified Code(s): I50.33 - Acute on chronic diastolic (congestive) heart failure (2) Mitral stenosis Current Visit: Yes Status: Acute Per cardiology: -TTE with moderate-severe mitral stenosis. -Discussed and reviewed with , can consider outpatient CRISTINA to further evaluate mitral valve. Qualifiers: Cardiac valve disease etiology: etiology unspecified Qualified Code(s): I05.0 - Rheumatic mitral stenosis Discussion w patient/family: The assessment and plan as outlined above was discussed with the patient who expressed understanding and agreement. All questions were answered. Thank you for involving us in the care of your patient. Please call with any questions. Discussed and reviewed with . History of Present Illness Consult date: 07/30/18 Requesting physician: Randy Carroll Consult reason: moderate-severe MS Chief complaint: shortness of breath History of present illness: Ms. Mo is a 82 year old female with a relevant past medical history of DM, HTN, stasis dermatitis, chronic suprapubic catheter, KWAKU on Bipap at night, restrictive lung disease, COPD, who presented to [facility] with complaints of shortness of breath. Patient states she had noticed increased shortness of breath for a few days. Patient was then admitted to [facility]. Patient denies chest pain. Denies palpitations/fluttering. Patient was diuresed. Patient states she feels improved now. Denies edema. Past Med Surg Social Fam HX - Past Medical History Attestation: Yes The following information was validated with the patient. Source: patient, old records reviewed Medical history: arthritis, COPD, diabetes, hyperlipidemia, hypertension, venous stasis, other Additional medical history: Skin Cancer, Obesity Psychiatric history: anxiety, depression - Past Surgical History Surgical History: cholecystectomy, hysterectomy Additional surgical history: Urostomy, - Social History Smoking Status: Never smoker Smokeless Tobacco Status: No Alcohol use: none Drug use: none - Family History Father Living Status: Hx Family Cardiac Disorders: Yes Hx Family Respiratory Disorders: No Hx Family Cancer: Yes (Leukemia) Hx Family GI Disorders: No Hx Family Endocrine Disorder: Yes Hx Family Neuromuscular Disorders: No Hx Family Neurologic Disorders: No Hx Family HEENT Disorders: No Hx Family Autoimmune Disorders: No Mother Adopted: Yes Living Status: Hx Family Cardiac Disorders: Yes Hx Family Respiratory Disorders: No Hx Family Cancer: Yes (Multiple myeloma) Hx Family GI Disorders: No Hx Family Endocrine Disorder: Yes Hx Family Neuromuscular Disorders: No Hx Family Neurologic Disorders: No Hx Family HEENT Disorders: No Hx Family Autoimmune Disorders: No Sister Living Status: Hx Family Cancer: Yes (Brain tumor) Medications and Allergies Losartan [Cozaar] 100 mg PO DAILY 01/07/15 [History] Magnesium Oxide [Magnesium] 500 mg PO DAILY 02/24/16 [History] Budesonide/Formoterol 160/4.5 [Symbicort 160/4.5] 2 puff IH BIDR #1 hfa.aer.[id number] 07/25/18 [Rx] Furosemide [Lasix] 20 mg PO DAILY 07/25/18 [History] Gabapentin [Neurontin] 100 mg PO 0800,1500 07/25/18 [History] Gabapentin [Neurontin] 100 mg PO HS 07/25/18 [History] Glimepiride [Amaryl] 1 mg PO QAM 07/25/18 [History] Nystatin POWDER [Nystop] 1 appl TP TID PRN 07/25/18 [History] Oxybutynin [Ditropan] 5 mg PO TID 07/25/18 [History] Zolpidem Tartrate 5 mg PO HS PRN 07/25/18 [History] predniSONE [PredniSONE] 40 mg PO DAILY #10 tablet 07/25/18 [Rx] Albuterol Sulfate [Albuterol Inhaler] 2 puff IH Q6H PRN 07/29/18 [History] Ascorbic Acid [Vitamin C] 500 mg PO DAILY 07/29/18 [History] Aspirin [Lo-Dose Aspirin EC] 81 mg PO DAILY 07/29/18 [History] Cyanocobalamin/Folic Acid [B-12 1,000 Mcg Sub Tablet] 1 each SL DAILY 07/29/18 [History] Multivitamin [Daily Multiple Vitamin] 1 each PO DAILY 07/29/18 [History] Lactobacillus Combination No.8 [Adult Probiotic] 1 cap PO DAILY 07/30/18 [History] Allergy/AdvReac Type Severity Reaction Status Date / Time doxycycline Allergy Rash Verified 10/08/17 14:23 Penicillins [PCN] Allergy Difficulty Verified 10/08/17 14:23 Breathing metformin AdvReac Diarrhea Verified 10/08/17 14:23 nitrofurantoin AdvReac Anaphylaxis Verified 10/08/17 14:23 sulfamethoxazole AdvReac Diarrhea Verified 10/08/17 14:23 [From Bactrim] trimethoprim [From Bactrim] AdvReac Diarrhea Verified 10/08/17 14:23 All Systems Review: The remainder of the systems were reviewed and are negative - Cardiovascular Cardiovascular: as per HPI, dyspnea at rest, dyspnea on exertion Physical Examination Vital Signs, Last 4 Hours Temp Pulse Resp BP Pulse Ox 07/30/18 07:11 98.0 F 67 17 155/80 93 General: Conversant, No Apparent Distress HEENT: Atraumatic, Normocephaly, Mucus Membranes Moist Neck: No JVD, Normal carotid pulses Cardiac: Reg Rate and Rhythm, Normal S1 and S2, No Murmur Lungs: Normal Breath Sounds, No Wheeze, Rales, Rhonchi Neuro: Alert and responsive, No focal deficits noted Abdomen: Soft, Non-Tender Skin: No rashes noted on visualized skin, Other (Bilateral lower extremity venous stasis noted. ) Musculoskeletal: No Chest Wall Tenderness Extremities: No Clubbing, No Cyanosis, No Edema, Normal Pulses Results 07/30/18 05:42 07/30/18 05:42 Lab Results Impressions Echocardiogram 07/29/18 07:55 Impressions: LVEF 65-70%. Mild concentric left ventricular hypertrophy. Mild left ventricular diastolic dysfunction. Severely dilated left atrium. Normal right ventricular structure and function. Mild-moderate aortic regurgitation. Moderate-severe mitral stenosis. Mild mitral regurgitation. Mild tricuspid regurgitation. Mild pulmonic regurgitation. Moderate pulmonary hypertension. Left Ventricular Wall Motion: Rest Echo Findings All wall segments showed normal motion. Findings: Study Quality * Technically adequate exam. ECG Findings * Sinus rhythm with PACs. Left Ventricle * LVEF 65-70%. * Normal LV chamber size and systolic function. * Mild concentric left ventricular hypertrophy. * Mild left ventricular diastolic dysfunction. Right Ventricle * Normal right ventricular structure and function. Left Atrium * Severely dilated left atrium. Right Atrium * Normal right atrial size. Interatrial Septum * Interatrial septum not well evaluated. Aortic Valve * Trileaflet aortic valve. * Mildly calcified aortic valve leaflets. * Mild-moderate aortic regurgitation. * No aortic stenosis. Mitral Valve * Moderately calcified mitral valve leaflets. * Moderate-severe mitral stenosis. * Mean transmitral gradient is 8 mmHg at HR 73 bpm. * Mild mitral regurgitation. Tricuspid Valve * Normal tricuspid valve function. * No tricuspid stenosis. * Mild tricuspid regurgitation. * Estimated RVSP is 52 mmHg. * Estimated RA pressure is 8 mmHg. * Moderate pulmonary hypertension. Pulmonic Valve * Pulmonic valve is not well visualized. * No pulmonic stenosis. * Mild pulmonic regurgitation. Aorta * Normally sized aortic root. Pericardium * The pericardium appears normal. IVC * The IVC is dilated. * > 50% respiratory change Active Medications Acetaminophen (Tylenol) 650 mg PO Q6HR PRN PRN Reason: Mild Pain/Fever Stop: 01/28/19 07:56 Hydrocodone Bitart/Acetaminophen ([place] 5-325 Mg) 1 tab PO Q6HR PRN PRN Reason: Moderate Pain Stop: 01/28/19 07:56 Last Admin: 07/30/18 03:08 Dose: 1 tab Documented by: Albuterol Sulfate (Proventil Neb) 2.5 mg IH [id number] PRN; Protocol PRN Reason: Shortness Of Breath/Wheezing Stop: 01/28/19 07:59 Albuterol/Ipratropium (Duoneb) 3 ml IH [id number] [facility] Stop: 01/28/19 07:46 Last Admin: 07/30/18 11:05 Dose: Not Given Documented by: Aspirin (Aspirin) 81 mg PO DAILY [facility] Stop: 01/28/19 09:01 Last Admin: 07/30/18 10:19 Dose: 81 mg Documented by: Budesonide/Formoterol Fumarate (Symbicort) 2 puff IH BIDR [facility]; Protocol Stop: 01/28/19 10:01 Last Admin: 07/30/18 11:05 Dose: Not Given Documented by: Dextrose/Water (Dextrose 50% (Syg)) 25 ml IVP AD PRN PRN Reason: Hypoglycemia Stop: 01/28/19 08:01 Furosemide (Lasix) 20 mg PO DAILY PRN PRN Reason: Edema Stop: 01/29/19 09:47 Gabapentin (Neurontin) 100 mg PO 0800,1500 [facility] Stop: 01/28/19 08:01 Last Admin: 07/30/18 10:20 Dose: 100 mg Documented by: Gabapentin (Neurontin) 100 mg PO HS [facility] Stop: 01/28/19 22:31 Last Admin: 07/29/18 22:35 Dose: 100 mg Documented by: Glucagon (Glucagen) 1 mg IM ONCE PRN PRN Reason: Hypoglycemia Stop: 01/28/19 08:01 Glucose (Gluctose) 15 gm PO ONCE PRN PRN Reason: Hypoglycemia Stop: 01/28/19 08:01 Glucose (Gluctose) 30 gm PO ONCE PRN PRN Reason: Hypoglycemia Stop: 01/28/19 08:01 Guaifenesin (Mucinex) 600 mg PO BID PRN PRN Reason: Congestion Stop: 01/29/19 09:47 Heparin Sodium (Porcine) (Heparin) 5,000 unit SQ Q8HCO [facility] Stop: 01/28/19 08:01 Last Admin: 07/30/18 05:43 Dose: 5,000 unit Documented by: Hydralazine HCl (Hydralazine) 10 mg IVP Q6HR PRN PRN Reason: Hypertension Stop: 01/28/19 16:19 Dextrose (Dextrose 5%) 1,000 mls @ 100 mls/hr IVC .Q10H PRN PRN Reason: HYPOGLYCEMIA Stop: 01/28/19 08:01 Insulin Human Lispro (Humalog) 0 units SQ [facility]; Protocol Stop: 01/28/19 21:01 Last Admin: 07/29/18 21:35 Dose: 3 units Documented by: Insulin Human Lispro (Humalog) 0 units SQ TIDAC [facility]; Protocol Stop: 01/28/19 08:53 Last Admin: 07/30/18 10:20 Dose: Not Given Documented by: Ipratropium [place] (Atrovent Neb) 0.5 mg IH [id number] PRN PRN Reason: Shortness Of Breath/Wheezing Stop: 01/28/19 07:43 Naloxone HCl (Narcan) 0.4 mg IVP Q2MPRN PRN PRN Reason: SEE COMMENTS Stop: 01/28/19 07:56 Ondansetron HCl (Zofran) 4 mg IVP Q8HR PRN PRN Reason: Nausea And Vomiting Stop: 01/28/19 07:56 Zolpidem Tartrate (Ambien) 5 mg PO HS PRN; Protocol PRN Reason: Sleep Stop: 01/28/19 08:00 Last Admin: 07/30/18 03:09 Dose: 5 mg Documented by: Laboratory Tests 07/29/18 07/29/18 07/29/18 01:45 08:11 16:19 Hgb Creatinine Troponin I < 0.03 < 0.03 < 0.03 07/30/18 07/30/18 05:42 05:42 Hgb 12.2 Creatinine 0.84 Troponin I - Imaging and Cardiology Chest Xray: report reviewed Echo: report reviewed - EKG Interpretation EKG results cardiology: personally reviewed (ECG with SR, HR 93.), other (Telemetry reviewed with average HR previous 12 hours noted to be 76, SR. PVCs and PACs noted.) Consult Discharge Plan - Plan Referrals: Sascha Baugh MD [Primary Care Provider] - (Appointment has been requested.) <DulceJacquie - Last Filed: 07/30/18 12:16> Date of Encounter: 07/30/18 - Attending Attestation I examined this patient and my medical decision-[facility] I agree with the documented findings, disposition and treatment plan as described. Ms. Mo presents with SOB. Has known moderate pulmonary hypertension, KWAKU and COPD. Probably an element of acute on chronic diastolic CHF. Echo report demonstrated moderate to severe MS. Images were personally reviewed. In some windows the mitral valve excursion may appear normal and MVA is normal by PHT. However, there is dense MAC limiting evaluation and elevated MG 6 mmHg at 73 bpm. I recommended to the patient she undergo CRISTINA for further evaluation. This can be done as an outpatient once pulmonary status improves. No further testing as inpatient. LVEF hyperdynamic suggesting fluid depletion. Agree with stopping IV lasix. Will sign off. Recommend outpatient Cardiac follow up. Assessment and Plan Discussion w patient/family: The assessment and plan as outlined above was discussed with the patient and/or family members who expressed understanding and agreement. All questions were answered. Thank you for involving us in the care of your patient. Please call with any questions. History of Present Illness History of present illness: Ms. Mo is a 82 year old female All Systems Review: The remainder of the systems were reviewed and are negative Results 07/30/18 05:42 07/30/18 05:42 Lab Results 07/29/18 07/30/18 07/30/18 16:19 05:42 05:42 WBC 9.9 Hgb 12.2 Hct 41.3 Plt Count 257 Sodium 141 Potassium 4.3 Chloride 94 L Carbon Dioxide 42 H* BUN 36 H Creatinine 0.84 Glucose 151 H Calcium 9.4 Troponin I < 0.03
--- NOTE | 2018-07-30 13:43 | Discharge Summary ---
<Randy Carroll - Last Filed: 07/30/18 13:39> - NOTES TO OUTPATIENT PROVIDER Notes to Outpatient Provider: Admitted with new onset diastolic CHF exacerbation with moderate-severe mitral stenosis. Evaluated by cardiology and will follow up as outpatient. Symptoms resolved and currently on home lasix dose Orders not resulted at time of discharge: Pending orders 07/29/18 18:12 Culture,Urine [RM] Stat Date of Encounter: 07/30/18 Time of Encounter: 09:15 - Discharge Diagnosis (1) Acute and chronic respiratory failure Priority: Primary Status: Acute Qualifiers: Respiratory failure complication: hypoxia Qualified Code(s): J96.21 - Acute and chronic respiratory failure with hypoxia (2) Hypoxia Priority: Secondary Status: Acute (3) Congestive heart failure Priority: Primary Status: Acute Qualifiers: Heart failure type: diastolic Heart failure chronicity: acute on chronic Qualified Code(s): I50.33 - Acute on chronic diastolic (congestive) heart failure (4) COPD (chronic obstructive pulmonary disease) Priority: Secondary Status: Chronic Qualifiers: COPD type: unspecified COPD Qualified Code(s): J44.9 - Chronic obstructive pulmonary disease, unspecified (5) Diabetes mellitus Priority: Secondary Status: Chronic Qualifiers: Diabetes mellitus type: type 2 Diabetes mellitus chcf insulin use: without terminal operator use Diabetes mellitus complication status: with hyperg lycemia Qualified Code(s): E11.65 - Type 2 diabetes mellitus with hyperglycemia (6) Hypertension Priority: Secondary Status: Chronic Qualifiers: Hypertension type: essential hypertension Qualified Code(s): I10 - Essential (primary) hypertension (7) Hyperlipidemia Priority: Secondary Status: Chronic Qualifiers: Hyperlipidemia type: unspecified Qualified Code(s): E78.5 - Hyperlipidemia, unspecified (8) DVT prophylaxis Priority: Secondary Status: Acute (9) Mitral stenosis Priority: Secondary Status: Acute Qualifiers: Cardiac valve disease etiology: etiology unspecified Qualified Code(s): I05.0 - Rheumatic mitral stenosis Hospital course: Ms. Mo is a 82 year old female with past medical history of diabetes, hyperlipidemia, hypertension, chronic venous stasis who presents to emergency room with complaint of shortness of breath. She states that her shortness of breath has been present times about 5 days and is now been improving. She was notably seen in the emergency department on 07/25/18 and diagnosed with suspected COPD exacerbation and was discharged that afternoon on steroid and azithromycin 5 days. She states that she uses home oxygen as needed since this last admission. Upon presentation to the emergency room vital signs were significant for a blood pressure of 156/64 and she was tolerating 96% oxygen on 2 L. Laboratory results showed a baseline anemia, potassium 4.8, glucose 152. Chest x-ray showed evidence of cardiomegaly with mild pulmonary vascular congestion. She was given Solu-Medrol in the emergency department and admitted for further evaluation and management. During course of stay, patient did gradually improve her symptoms. She was diuresed for suspected congestive heart failure. After removal of 2.1 L of fluid, patient's respiratory status has returned back to her baseline. She get in echocardiogram during the stay which revealed ejection fraction of 65-70% with mild diastolic dysfunction. However it was also noted that there significant valvular disease including moderate to severe mitral stenosis. Cardiology was consult to evaluate the patient. They recommend a outpatient C[facility] with cardiology follow-up for further evaluation. She is transitioned back to her home dose of Lasix and did complete her prednisone and azithromycin course during the stay. She was instructed to follow up with her primary care physician as well as cardiology for further management. Labs and vital to return back to baseline levels. She is medically stable for discharge at this time Discharge discussed with: patient, nurse - Time Spent with Patient Total time spent providing and/or coordinating discharge services: - Discharge Medications Prescriptions: New Carvedilol 3.125 mg PO BID #10 tab Continued Losartan [Cozaar] 100 mg PO DAILY Magnesium Oxide [Magnesium] 500 mg PO DAILY Budesonide/Formoterol 160/4.5 [Symbicort 160/4.5] 2 puff IH BIDR #1 hfa.aer.ad Zolpidem Tartrate 5 mg PO HS PRN PRN Reason: Sleep Oxybutynin [Ditropan] 5 mg PO TID Furosemide [Lasix] 20 mg PO DAILY Gabapentin [Neurontin] 100 mg PO 0800,1500 Gabapentin [Neurontin] 100 mg PO HS Nystatin POWDER [Nystop] 1 appl TP TID PRN PRN Reason: IRRITATION Glimepiride [Amaryl] 1 mg PO QAM Aspirin [Lo-Dose Aspirin EC] 81 mg PO DAILY Albuterol Sulfate [Albuterol Inhaler] 2 puff IH Q6H PRN PRN Reason: Wheezing Cyanocobalamin/Folic Acid [B-12 1,000 Mcg Sub Tablet] 1 each SL DAILY Ascorbic Acid [Vitamin C] 500 mg PO DAILY Multivitamin [Daily Multiple Vitamin] 1 each PO DAILY Lactobacillus Combination No.8 [Adult Probiotic] 1 cap PO DAILY Discontinued predniSONE [PredniSONE] 40 mg PO DAILY #10 tablet Home Medications: Losartan [Cozaar] 100 mg PO DAILY 01/07/15 [History] Magnesium Oxide [Magnesium] 500 mg PO DAILY 02/24/16 [History] Budesonide/Formoterol 160/4.5 [Symbicort 160/4.5] 2 puff IH BIDR #1 hfa.aer.ad 07/25/18 [Rx] Furosemide [Lasix] 20 mg PO DAILY 07/25/18 [History] Gabapentin [Neurontin] 100 mg PO 0800,1500 07/25/18 [History] Gabapentin [Neurontin] 100 mg PO HS 07/25/18 [History] Glimepiride [Amaryl] 1 mg PO QAM 07/25/18 [History] Nystatin POWDER [Nystop] 1 appl TP TID PRN 07/25/18 [History] Oxybutynin [Ditropan] 5 mg PO TID 07/25/18 [History] Zolpidem Tartrate 5 mg PO HS PRN 07/25/18 [History] Albuterol Sulfate [Albuterol Inhaler] 2 puff IH Q6H PRN 07/29/18 [History] Ascorbic Acid [Vitamin C] 500 mg PO DAILY 07/29/18 [History] Aspirin [Lo-Dose Aspirin EC] 81 mg PO DAILY 07/29/18 [History] Cyanocobalamin/Folic Acid [B-12 1,000 Mcg Sub Tablet] 1 each SL DAILY 07/29/18 [History] Multivitamin [Daily Multiple Vitamin] 1 each PO DAILY 07/29/18 [History] Carvedilol 3.125 mg PO BID #10 tab 07/30/18 [Rx] Lactobacillus Combination No.8 [Adult Probiotic] 1 cap PO DAILY 07/30/18 [History] Allergies/Adverse Reactions: Allergy/AdvReac Type Severity Reaction Status Date / Time doxycycline Allergy Rash Verified 10/08/17 14:23 Penicillins [PCN] Allergy Difficulty Verified 10/08/17 14:23 Breathing metformin AdvReac Diarrhea Verified 10/08/17 14:23 nitrofurantoin AdvReac Anaphylaxis Verified 10/08/17 14:23 sulfamethoxazole AdvReac Diarrhea Verified 10/08/17 14:23 [From Bactrim] trimethoprim [From Bactrim] AdvReac Diarrhea Verified 10/08/17 14:23 Date of admission: 07/29/18 04:42 Primary care physician: Sascha Baugh MD Consults: 07/29/18 07:12 Consult to Wound Care [CONS] Routine Reason for Consult: venous stasis vascular wounds to bilat lower ext Call Completed: No 07/29/18 08:10 Consult to Nurse Navigator [CONS] Routine Comment: COPD 07/29/18 14:10 Consult to Occupational Therapy [CONS] Routine Comment: Evaluate, develop and implement POC Reason for Consult: assess home needs Does patient have active BEDREST order?: No Is patient medically & hemodynamically stable?: Yes Patient assessed for mobility or mobilized this visit?: Yes Consult to Physical Therapy [CONS] Routine Comment: Evaluate, develop and implement POC Reason for Consult: assess mobility needs Does patient have active BEDREST order?: No Is patient medically & hemodynamically stable?: Yes Patient assessed for mobility or mobilized this visit?: Yes Consult to Student Counselor [CONS] Routine Reason for SW Consult: dispo planning 07/30/18 08:07 Consult to Cardiology [CONS] Routine Comment: Consulting Provider: Cardiology Nita Reason for Consult: Moderate severe mitral stenosis with dilated atrium. CHF Call Completed: Yes Discharging clinician: Randy Carroll Anticipated date of discharge: 07/30/18 - Constitutional Vitals: Temp Pulse Resp BP Pulse Ox 98.2 F 76 16 164/82 95 07/30/18 12:13 07/30/18 12:13 07/30/18 12:13 07/30/18 12:13 07/30/18 12:13 Exam: Gen.: Vitals noted. No acute distress. AAOx3, resting comfortably in bed. Morbidly obese , more awake today HEENT: EOMI, oropharynx clear, Normocephalic, atraumatic, MMM Cardiac: RRR, no murmur, +S1/S2, trace BLE edema Pulmonary: Much improved. Mildly decreased at baseline but otherwise CTA bilaterally. equal chest expansion, unlabored breathing Abdomen: soft, nontender, BS noted, no guarding, no palpable HSM Skin: warm and dry, bilateral lower extremities with changes of chronic venous stasis with ulcerations. MSK: ROM intact, no joint swelling noted, gait no assessed while in bed. Non tender calf or clubbing Neuro: A&Ox3, moves all extremities, no focal deficits, sensation intact Psych: Appropriate mood and behavior, AOx3 - Patient Status Disposition: Home Health Service Condition: Good Functional capacity at discharge: independent ambulation Overall status at discharge: patient is back to baseline - Discharge Instructions Follow Up With: Sascha Baugh MD [Primary Care Provider] - (Appointment has been requested.) Jacquie Cardona DO [Partnered Physician] - (outpt [facility] ) Additional Instructions: Please take all medication as prescribed and follow up with your PCP within 5-7 days. Cardiology will also call you for an appointment. - Diet and Activity Activity: increase activity as tolerated, resume usual activities as tolerated, wear oxygen at all times Diet: diabetic diet, low salt diet <Maryam Kirkland - Last Filed: 07/30/18 15:34> Orders not resulted at time of discharge: Pending orders 07/29/18 18:12 Culture,Urine [RM] Stat Date of Encounter: 07/30/18 - Discharge Diagnosis (1) Hypoxia Status: Acute (2) DVT prophylaxis Status: Acute (3) Acute and chronic respiratory failure Status: Acute Qualifiers: Respiratory failure complication: hypoxia Qualified Code(s): J96.21 - Acute and chronic respiratory failure with hypoxia (4) Congestive heart failure Status: Acute Qualifiers: Heart failure type: diastolic Heart failure chronicity: acute on chronic Qualified Code(s): I50.33 - Acute on chronic diastolic (congestive) heart failure (5) COPD (chronic obstructive pulmonary disease) Status: Chronic Qualifiers: COPD type: unspecified COPD Qualified Code(s): J44.9 - Chronic obstructive pulmonary disease, unspecified (6) Diabetes mellitus Status: Chronic Qualifiers: Diabetes mellitus type: type 2 Diabetes mellitus terminal operator insulin use: without terminal operator use Diabetes mellitus complication status: with hyperglycemia Qualified Code(s): E11.65 - Type 2 diabetes mellitus with hyperglycemia (7) Hypertension Status: Chronic Qualifiers: Hypertension type: essential hypertension Qualified Code(s): I10 - Essential (primary) hypertension (8) Hyperlipidemia Status: Chronic Qualifiers: Hyperlipidemia type: unspecified Qualified Code(s): E78.5 - Hyperlipidemia, unspecified (9) Mitral stenosis Status: Acute Qualifiers: Cardiac valve disease etiology: etiology unspecified Qualified Code(s): I05.0 - Rheumatic mitral stenosis Hospital course: Ms. Mo is a 82 year old female - Time Spent with Patient Total time spent providing and/or coordinating discharge services: Time spent: Greater than 30 minutes (40 min) Date of admission: 07/29/18 04:42 Primary care physician: Sascha Baugh MD Consults: 07/29/18 07:12 Consult to Wound Care [CONS] Routine Reason for Consult: venous stasis vascular wounds to bilat lower ext Call Completed: No 07/29/18 08:10 Consult to Nurse Navigator [CONS] Routine Comment: COPD 07/29/18 14:10 Consult to Occupational Therapy [CONS] Routine Comment: Evaluate, develop and implement POC Reason for Consult: assess home needs Does patient have active BEDREST order?: No Is patient medically & hemodynamically stable?: Yes Patient assessed for mobility or mobilized this visit?: Yes Consult to Physical Therapy [CONS] Routine Comment: Evaluate, develop and implement POC Reason for Consult: assess mobility needs Does patient have active BEDREST order?: No Is patient medically & hemodynamically stable?: Yes Patient assessed for mobility or mobilized this visit?: Yes Consult to Student Counselor [CONS] Routine Reason for SW Consult: dispo planning 07/30/18 08:07 Consult to Cardiology [CONS] Routine Comment: Consulting Provider: Cardiology Nita Reason for Consult: Moderate severe mitral stenosis with dilated atrium. CHF Call Completed: Yes - Constitutional Vitals: Temp Pulse Resp BP Pulse Ox 98.2 F 76 16 164/82 95 07/30/18 12:13 07/30/18 12:13 07/30/18 12:13 07/30/18 12:13 07/30/18 12:13 - Attending Attestation I examined this patient and my medical decision-making was reviewed with the Resident Physician Dr Carroll. I agree with the documented findings, disposition and treatment plan as described except to the extent set forth below. Ms Mo was being observed for acute resp failure 2/2 acute diastolic chf exacerbation in setting of recently treated copde. awake, pleasant, lying flat, feeling great. no sob on ben eo2. wasn't wearing it bc she didn't know what "as needed" meant. discussed and all questions answered. denies cp, pressure, palpitations. has private HHC at home and will resume on dc as she is self pay gen- alert, awake,appears stated age, obese cv- reg rate and rhythm, normal s1,s2, no murmurs appreciated but given body habitus hard to appreciate her heart sounds, no pitting le edema present, lungs- ctabl, no wheezing, rhonchi or crackles, normal reps effort on o2 nc neuro- AAOx3 Acute on chronic resp failure with hypoxia, resolved 2/2 acute diastolic CHF exacerbation competed COPDE treatment here CXR with mild pulm vasc congestion Echo with mod - severe mitral stenosis as per cards fu outpt for CRISTINA -02 nc already set up 2L prn at home -cont home lasix on dc, started BB here, on arb -fu with cards outpt HTN with elevated BPs above goal- home arb, coreg added, requires outpt fu, private home health in place and BP monitoring, repeat bp prior to dc verbally reported and at goal further diagnoses and plan as noted by resident time spent on dc 40 min
[2018-07-30] MEDS: Furosemide 40 MG/4 ML VIAL IVP SCH (13:44)
--- NOTE | 2018-07-30 15:02 | Physician Discharge Referral ---
<Randy Carroll - Last Filed: 07/30/18 15:01> Home Health/Hosp Referral Info Transfer to: Home Health Provider in Charge Post Discharge: PCP - Diagnosis (1) Acute and chronic respiratory failure Priority: Primary Status: Acute (2) Hypoxia Priority: Secondary Status: Acute (3) Congestive heart failure Priority: Secondary Status: Acute (4) COPD (chronic obstructive pulmonary disease) Priority: Secondary Status: Chronic (5) Diabetes mellitus Priority: Secondary Status: Chronic (6) Hypertension Priority: Secondary Status: Chronic (7) Hyperlipidemia Priority: Secondary Status: Chronic (8) Mitral stenosis Priority: Secondary Status: Acute (9) DVT prophylaxis Priority: Secondary Status: Acute - Respiratory Orders Smoking Cessation: Smoking cessation has been advised. For more information, call the [place] Tobacco Quit Line at 5-495-DGFI-NOW. - Diet/Nutrition Diet/Nutrition Orders: No Added Salt (CAROLYN), Cardiac, No Concentrated Sweets - Activity Activity Orders: Ambulate - Services Needed Following services are medically necessary services: Nursing, Home Health Aide, Physical Therapy, Occupational Therapy - Transfer Medications Prescriptions: Carvedilol 3.125 mg PO BID #10 tab Home Medications: Losartan [Cozaar] 100 mg PO DAILY 01/07/15 [History] Magnesium Oxide [Magnesium] 500 mg PO DAILY 02/24/16 [History] Budesonide/Formoterol 160/4.5 [Symbicort 160/4.5] 2 puff IH BIDR #1 hfa.aer.ad 07/25/18 [Rx] Furosemide [Lasix] 20 mg PO DAILY 07/25/18 [History] Gabapentin [Neurontin] 100 mg PO 0800,1500 07/25/18 [History] Gabapentin [Neurontin] 100 mg PO HS 07/25/18 [History] Glimepiride [Amaryl] 1 mg PO QAM 07/25/18 [History] Nystatin POWDER [Nystop] 1 appl TP TID PRN 07/25/18 [History] Oxybutynin [Ditropan] 5 mg PO TID 07/25/18 [History] Zolpidem Tartrate 5 mg PO HS PRN 07/25/18 [History] Albuterol Sulfate [Albuterol Inhaler] 2 puff IH Q6H PRN 07/29/18 [History] Ascorbic Acid [Vitamin C] 500 mg PO DAILY 07/29/18 [History] Aspirin [Lo-Dose Aspirin EC] 81 mg PO DAILY 07/29/18 [History] Cyanocobalamin/Folic Acid [B-12 1,000 Mcg Sub Tablet] 1 each SL DAILY 07/29/18 [History] Multivitamin [Daily Multiple Vitamin] 1 each PO DAILY 07/29/18 [History] Carvedilol 3.125 mg PO BID #10 tab 07/30/18 [Rx] Lactobacillus Combination No.8 [Adult Probiotic] 1 cap PO DAILY 07/30/18 [History] Allergies/Adverse Reactions: Allergy/AdvReac Type Severity Reaction Status Date / Time doxycycline Allergy Rash Verified 10/08/17 14:23 Penicillins [PCN] Allergy Difficulty Verified 10/08/17 14:23 Breathing metformin AdvReac Diarrhea Verified 10/08/17 14:23 nitrofurantoin AdvReac Anaphylaxis Verified 10/08/17 14:23 sulfamethoxazole AdvReac Diarrhea Verified 10/08/17 14:23 [From Bactrim] trimethoprim [From Bactrim] AdvReac Diarrhea Verified 10/08/17 14:23 Certification: Further, I certify that my clinical findings support that this patient is homebound (i.e. absences from home require considerable and taxing effort and are for medical reasons or taoist services or infrequently or short duration when for other reasons) because: Homebound Reason: Leaving home requires considerable and taxing effort due to condition Attestation: My signature below is to certify that this patient is under my care and that I, or nurse practitioner, or a physician's mri assistant working with me, has a [id number] encounter with this patient. <Maryam Kirkland - Last Filed: 07/30/18 15:35> - Diagnosis (1) Hypoxia Status: Acute (2) DVT prophylaxis Status: Acute (3) Acute and chronic respiratory failure Status: Acute (4) Congestive heart failure Status: Acute (5) COPD (chronic obstructive pulmonary disease) Status: Chronic (6) Diabetes mellitus Status: Chronic (7) Hypertension Status: Chronic (8) Hyperlipidemia Status: Chronic (9) Mitral stenosis Status: Acute - Respiratory Orders Oxygen / L per min (2l NC prn) Smoking Cessation: Smoking cessation has been advised. For more information, call the [place] Tobacco Quit Line at 5-854-WUZD-NOW. Other Treatments: BP monitoring on new regimen losartan + coreg Certification: Further, I certify that my clinical findings support that this patient is homebound (i.e. absences from home require considerable and taxing effort and are for medical reasons or taoist services or infrequently or short duration when for other reasons) because: Homebound Reason: Patient requires assistance of a person or device to safely leave home, Leaving home requires considerable and taxing effort due to condition Attestation: My signature below is to certify that this patient is under my care and that I, or nurse practitioner, or a physician's mri assistant working with me, has a [id number] encounter with this patient.
[2018-07-30 15:54] VITALS: BP 165/89
--- NOTE | 2018-08-01 09:28 | Electrocardiograph Report ---
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
== END 2018-07-30 19:00 | disposition home health service (06) ==
LOC: 3BNU 01:22 → EMEROOARM 01:22 → SUATTDRO 04:42 → 3BNU 05:36
PROVIDERS: ADMIT Internal Medicine; ATTEND Internal Medicine

== ENCOUNTER 2018-12-01 20:43 | Observation (INO) ==
[2018-12-01] MEDS ORDERED: 0.9 % Sodium Chloride 1,000 ML IVC ONE ×2 (20:55→23:31)
[2018-12-01] MEDS ORDERED: Isovue-370 500 ML BOTTLE IVP ONE (21:15)
--- NOTE | 2018-12-01 21:15 | Emergency Department Note ---
Disposition Clinical Impression: Weakness Disposition: Admitted As Inpatient Condition: Fair Time of Disposition: 23:00 General Adult HPI - General Chief complaint: ED Weakness Stated complaint: weakness Time Seen by Provider: 12/01/18 20:54 Source: EMS Mode of arrival: EMS Limitations: no limitations Nursing Notes Reviewed: Yes Vital Signs Reviewed: Yes - History of Present Illness HPI Narrative: Patient is a 83-year-old female history of hypertension, diabetes, COPD, chronic healing ulcer, presenting the emergency department for a chief complaint of weakness and continuous diarrhea section in. She states that she woke up feeling fine and then around lunchtime she needed assistance going to the bathroom. Her son assists her with most of her daily activities. Once on the toilet she had multiple episodes of diarrhea that capture on the toilet for mostly afternoon. She states the diarrhea was watery but did not notice any blood in stool. Patient has a chronic Acevedo catheter that her son changes. Patient states that she was recently treated for a urinary tract infection but she does not know the antibiotic. Patient's son who takes care of her on Sunday states that after all the diarrhea the patient was too weak to make her transfers from wheelchair to bed or wheelchair to toilet. She has chronic weakness of her left leg but can normally transfer. Patient denies new chest pain, shortness of breath, abdominal pain, nausea, vomiting Pain Scale: 0 - Related Data Home Medications Medication Instructions Recorded Confirmed Losartan [Cozaar] 100 mg PO DAILY 01/07/15 12/02/18 Furosemide [Lasix] 20 mg PO DAILY 07/25/18 12/02/18 Gabapentin [Neurontin] 100 mg PO 0800,1500 07/25/18 12/02/18 Gabapentin [Neurontin] 100 mg PO HS 07/25/18 12/02/18 Glimepiride [Amaryl] 1 mg PO QAM 07/25/18 12/02/18 Nystatin POWDER [Nystop] 1 appl TP TID PRN 07/25/18 12/02/18 Oxybutynin [Ditropan] 5 mg PO TID 07/25/18 12/02/18 Zolpidem Tartrate 5 mg PO HS PRN 07/25/18 12/02/18 Albuterol Sulfate [Proventil 2 puff IH Q6H PRN 07/29/18 12/02/18 Inhaler] Ascorbic Acid [Vitamin C] 500 mg PO DAILY 07/29/18 12/02/18 Aspirin [Lo-Dose Aspirin EC] 81 mg PO DAILY 07/29/18 12/02/18 Cyanocobalamin/Folic Acid [B-12 1 each SL DAILY 07/29/18 12/02/18 1,000 Mcg Sub Tablet] Multivitamin [Daily Multiple 1 each PO DAILY 07/29/18 12/02/18 Vitamin] Lactobacillus Combination No.8 1 cap PO DAILY 07/30/18 12/02/18 [Adult Probiotic] Previous Rx's Medication Instructions Recorded Budesonide/Formoterol 160/4.5 2 puff IH BIDR #1 hfa.aer.ad 07/25/18 [Symbicort 160/4.5] Albuterol Sulfate 2.5 mg IH Q4H PRN #20 vial.neb 07/30/18 Carvedilol 3.125 mg PO BID #10 tab 07/30/18 Allergies Allergy/AdvReac Type Severity Reaction Status Date / Time doxycycline Allergy Rash Verified 10/08/17 14:23 Penicillins [PCN] Allergy Difficulty Verified 10/08/17 14:23 Breathing metformin AdvReac Diarrhea Verified 10/08/17 14:23 nitrofurantoin AdvReac Anaphylaxis Verified 10/08/17 14:23 sulfamethoxazole AdvReac Diarrhea Verified 10/08/17 14:23 [From Bactrim] trimethoprim [From Bactrim] AdvReac Diarrhea Verified 10/08/17 14:23 All systems ED: reviewed and negative except as stated. Review of Systems: As Per HPI Constitutional: Reports: weakness. Denies: fever, chills Eyes: Denies: eye pain, eye discharge ENT ED: Denies: ear pain, throat pain Cardiovascular: Denies: chest pain, palpitations, paroxysmal nocturnal dyspnea Respiratory: Denies: cough, dyspnea Gastrointestinal: Reports: diarrhea. Denies: abdominal pain, nausea, vomiting Genitourinary: Denies: urgency, dysuria Musculoskeletal: Denies: back pain, neck pain Integumentary: Reports: abrasion (Right lower extremity chronic healing ulcer). Denies: rash Neurological: Denies: headache, weakness Psychiatric: Denies: anxiety, depression Endocrine: Denies: fatigue, heat or cold intolerance Hematological/Lymphatic: Denies: easy bleeding, easy bruising Allergic/Immunologic: Denies: facial swelling, urticaria Past Medical History - Past Medical History Medical history: Reports: arthritis, COPD, diabetes, hyperlipidemia, hypertension, venous stasis, other Surgical history: Reports: cholecystectomy, hysterectomy Psychiatric history: Reports: anxiety, depression [employer] ASSEMBLER history: Reports: no [employer]ER ASSEMBLER history - Social History Smoking Status: Never smoker Smokeless Tobacco Status: No Alcohol use: Reports: none Drug use: Reports: none Physical Exam - General General appearance: alert, in no apparent distress - Head Head exam: atraumatic, normocephalic - Eye Eye exam: Present: normal appearance, PERRL, EOMI - ENT ENT exam: normal exam, normal oropharynx, mucous membranes dry - Neck Neck exam: Present: normal inspection, full ROM - Chest Chest inspection: Present: normal inspection, symmetric chest wall rise. Absent: tenderness - Respiratory Respiratory exam: Present: normal lung sounds bilaterally. Absent: respiratory distress, wheezes - Cardiovascular Cardiovascular exam: Present: regular rate, normal rhythm, normal heart sounds - Abdominal Exam Abdominal exam: Present: soft, Non-Tender. Absent: tenderness, distention - Neurological Exam Neurological exam: Present: alert, oriented X3, CN II-XII intact. Absent: motor sensory deficit - Psychiatric Psychiatric exam: Present: normal affect, normal mood - Skin Skin exam: Present: warm Course Vital Signs Temperature 98.7 F 12/01/18 20:46 Pulse Rate 72 12/01/18 20:46 Respiratory Rate 20 12/01/18 20:46 Blood Pressure 140/112 12/01/18 20:46 O2 Sat by Pulse Oximetry 96 12/01/18 20:46 Temperature 98.0 F 12/02/18 03:27 Pulse Rate 79 12/02/18 03:27 Respiratory Rate 17 12/02/18 03:27 Blood Pressure 163/66 12/02/18 03:27 O2 Sat by Pulse Oximetry 95 12/02/18 03:27 Oxygen Delivery Oxygen Delivery Nasal Cannula Medical Decision Making - [facility] Narrative Medical decision making narrative: Patient was in the emergency department with weakness. Patient had multiple episodes of diarrhea today and was unable to make her transfers. Patient has multiple chronic medical problems and has assistance at home. Concern for infection, urinary tract infection, infectious colitis, pneumonia. In the emergency Department will investigate for different sources with urinalysis, basic labs, CT of the abdomen, blood cultures, also investigated her heart with a troponin. Patient feels too weak to be able to care for herself at home. She will be admitted for further evaluation. Patient patient is agreeable to this time. - Medical Records Medical records reviewed: Yes I reviewed the patient's medical records. - Lab Data Lab results reviewed: Yes I reviewed the patient's lab results. Result diagrams: 12/02/18 05:02 12/02/18 05:02 Lab Results 12/01/18 12/01/18 12/01/18 Range/Units 21:29 21:29 21:29 WBC 12.9 H (4.3-11.1) K/mcL RBC 3.83 (3.82-4.97) M/mcL Hgb 10.9 L (11.5-15.4) g/dL Hct 37.0 (35.3-44.9) % MCV 96.6 (83.0-100.0) fL MCH 28.5 (28.0-33.3) pg MCHC 29.5 L (31.6-35.5) g/dL RDW 13.7 (11.5-14.5) % Plt Count 260 (140-400) K/mcL MPV 9.1 L (9.4-12.4) fL Immature Gran % 0.4 (0-4) % Seg Neutrophils % 76.8 % Lymphocytes % 13.1 % Monocytes % 6.3 % Eosinophils % 3.0 % Basophils % 0.4 % Neutrophils # 9.9 H (1.6-8.9) K/mcL Lymphocytes # 1.7 (0.6-4.6) K/mcL Monocytes # 0.8 (0.0-1.3) K/mcL Eosinophils # 0.4 (0.0-0.6) K/mcL Basophils # 0.1 (0.0-0.2) K/mcL PT 11.8 (9.4-12.1) Seconds INR 1.0 APTT 31.3 (26.0-36.0) Seconds Sodium 134 L (136-145) mEq/L Potassium 5.2 H (3.5-5.1) mEq/L Chloride 93 L (98-107) mEq/L Carbon Dioxide 35 H (23-29) mEq/L BUN 29 H (8-23) mg/dL Creatinine 0.88 (0.60-1.20) mg/dL Est GFR ( Amer) > 60 (> 60) Est GFR (Non-Af Amer) > 60 (> 60) BUN/Creatinine Ratio 33 H (6-26) Glucose 195 H (70-105) mg/dL Calculated Osmolality 289 (280-300) Lactic Acid (0.5-2.2) mmol/L Calcium 9.4 (8.6-10.3) mg/dL Phosphorus 4.2 (2.7-4.5) mg/dL Magnesium 2.3 (1.6-2.6) mg/dL Total Bilirubin 0.4 (0.3-1.0) mg/dL Direct Bilirubin 0.1 (0.0-0.2) mg/dL Indirect Bilirubin 0.3 (0.0-1.2) mg/dL AST 15 (13-39) Units/L ALT 10 (7-52) Units/L Alkaline Phosphatase 65 (34-104) Units/L Troponin I < 0.03 (< 0.04) ng/mL Serum Total Protein 7.2 (6.4-8.9) g/dL Albumin 3.4 L (3.5-5.7) g/dL Globulin 3.8 H (2.4-3.5) g/dL Albumin/Globulin Ratio 0.9 L (1.1-2.2) Urine Color (Yellow) Urine Clarity (Clear) Urine pH (5.0-8.0) pH Units Ur Specific [place] (1.010-1.025) Urine Protein (Neg-Trace) mg/dL Urine Glucose (UA) (Normal) mg/dL Urine Ketones (Negative) mg/dL Urine Blood (Negative) Urine Nitrite (Negative) Urine Bilirubin (Negative) Urine Urobilinogen (Normal) mg/dL Ur Leukocyte Esterase (Negative) Urine Microscopic RBC (0-3) per hpf Urine Microscopic WBC (0-3) per hpf Ur Squamous Epith Cells (None-Few) per lpf Urine Bacteria (None-Few) per hpf Hyaline Casts (None-Few) per lpf Ur Culture Indicated? (NO) 12/01/18 12/01/18 12/02/18 Range/Units 21:29 23:27 01:24 WBC (4.3-11.1) K/mcL RBC (3.82-4.97) M/mcL Hgb (11.5-15.4) g/dL Hct (35.3-44.9) % MCV (83.0-100.0) fL MCH (28.0-33.3) pg MCHC (31.6-35.5) g/dL RDW (11.5-14.5) % Plt Count (140-400) K/mcL MPV (9.4-12.4) fL Immature Gran % (0-4) % Seg Neutrophils % % Lymphocytes % % Monocytes % % Eosinophils % % Basophils % % Neutrophils # (1.6-8.9) K/mcL Lymphocytes # (0.6-4.6) K/mcL Monocytes # (0.0-1.3) K/mcL Eosinophils # (0.0-0.6) K/mcL Basophils # (0.0-0.2) K/mcL PT (9.4-12.1) Seconds INR APTT (26.0-36.0) Seconds Sodium (136-145) mEq/L Potassium (3.5-5.1) mEq/L Chloride (98-107) mEq/L Carbon Dioxide (23-29) mEq/L BUN (8-23) mg/dL Creatinine (0.60-1.20) mg/dL Est GFR ( Amer) (> 60) Est GFR (Non-Af Amer) (> 60) BUN/Creatinine Ratio (6-26) Glucose (70-105) mg/dL Calculated Osmolality (280-300) Lactic Acid 2.4 H 1.0 (0.5-2.2) mmol/L Calcium (8.6-10.3) mg/dL Phosphorus (2.7-4.5) mg/dL Magnesium (1.6-2.6) mg/dL Total Bilirubin (0.3-1.0) mg/dL Direct Bilirubin (0.0-0.2) mg/dL Indirect Bilirubin (0.0-1.2) mg/dL AST (13-39) Units/L ALT (7-52) Units/L Alkaline Phosphatase (34-104) Units/L Troponin I (< 0.04) ng/mL Serum Total Protein (6.4-8.9) g/dL Albumin (3.5-5.7) g/dL Globulin (2.4-3.5) g/dL Albumin/Globulin Ratio (1.1-2.2) Urine Color Yellow (Yellow) Urine Clarity Cloudy A (Clear) Urine pH 6.5 (5.0-8.0) pH Units Ur Specific [place] 1.024 (1.010-1.025) Urine Protein 30 H (Neg-Trace) mg/dL Urine Glucose (UA) Normal (Normal) mg/dL Urine Ketones Negative (Negative) mg/dL Urine Blood Large H (Negative) Urine Nitrite Negative (Negative) Urine Bilirubin Negative (Negative) Urine Urobilinogen Normal (Normal) mg/dL Ur Leukocyte Esterase Large H (Negative) Urine Microscopic RBC 5-15 H (0-3) per hpf Urine Microscopic WBC 15-30 H (0-3) per hpf Ur Squamous Epith Cells Few (None-Few) per lpf Urine Bacteria Moderate H (None-Few) per hpf Hyaline Casts Moderate H (None-Few) per lpf Ur Culture Indicated? YES A (NO) - Radiology Data Radiology results reviewed: Yes I reviewed the patient's radiology results. Chest X-Ray 12/01/18 20:56 IMPRESSION: No acute disease. D/ / Lewis Hemphill MD / Lewis Hemphill MD Interpreting Provider: Lewis Hemphill MD Abdomen/Pelvis CT 12/01/18 21:15 IMPRESSION: No acute process identified. D/ / Lewis Hemphill MD / Lewis Hemphill MD Interpreting Provider: Lewis Hemphill MD - EKG Data EKG #1 EKG attestation: Yes I reviewed and interpreted this EKG. EKG results narrative: EKG performed at 2054 reviewed by myself and attending shows a sinus rhythm at a rate of 67, MA 160, QRS 80, QTC 434. There are no acute ST changes no acute T- wave changes no other signs of ischemia. No evidence of heart block. This EKG is unchanged when compared with EKG performed 07/29/2018. Overall this is a normal EKG.
[2018-12-01 21:44] LABS: Basophils # 0.1 K/mcL (0.0-0.2); Basophils % 0.4 %; Eosinophils # 0.4 K/mcL (0.0-0.6); Hemoglobin 10.9 g/dL (11.5-15.4); Immature Granulocytes % 0.4 % (0-4); Lymphocytes # 1.7 K/mcL (0.6-4.6); Lymphocytes % 13.1 %; Mean Corpuscular HGB Conc 29.5 g/dL (31.6-35.5); Mean Corpuscular Hemoglobin 28.5 pg (28.0-33.3); Mean Corpuscular Volume 96.6 fL (83.0-100.0); Mean Platelet Volume 9.1 fL (9.4-12.4); Monocytes # 0.8 K/mcL (0.0-1.3); Monocytes % 6.3 %; Neutrophils # 9.9 K/mcL (1.6-8.9); Platelet Count 260 K/mcL (140-400); Red Blood Count 3.83 M/mcL (3.82-4.97); Red Cell Distribution Width 13.7 % (11.5-14.5); Segmented Neutrophils % 76.8 %; White Blood Count 12.9 K/mcL (4.3-11.1)
[2018-12-01 21:53] LABS: Prothrombin Time 11.8 Seconds (9.4-12.1)
[2018-12-01 21:56] LABS: Activated Partial Thrombo Time 31.3 Seconds (26.0-36.0)
[2018-12-01 22:05] LABS: Alanine Aminotransferase 10 Units/L (7-52); Albumin 3.4 g/dL (3.5-5.7); Albumin/Globulin Ratio 0.9 (1.1-2.2); Alkaline Phosphatase 65 Units/L (34-104); Aspartate Amino Transferase 15 Units/L (13-39); BUN/Creatinine Ratio 33 (6-26); Bilirubin,Direct 0.1 mg/dL (0.0-0.2); Bilirubin,Indirect 0.3 mg/dL (0.0-1.2); Bilirubin,Total 0.4 mg/dL (0.3-1.0); Blood Urea Nitrogen 29 mg/dL (8-23); Calcium 9.4 mg/dL (8.6-10.3); Carbon Dioxide 35 mEq/L (23-29); Chloride 93 mEq/L (98-107); Globulin 3.8 g/dL (2.4-3.5); Glucose 195 mg/dL (70-105); Magnesium 2.3 mg/dL (1.6-2.6); Osmolality,Calculated 289 (280-300); Phosphorous 4.2 mg/dL (2.7-4.5); Potassium 5.2 mEq/L (3.5-5.1); Sodium 134 mEq/L (136-145); Total Protein 7.2 g/dL (6.4-8.9); Troponin I < 0.03 ng/mL (< 0.04); eGFR For African Americans > 60 (> 60); eGFR For Non-African Americans > 60 (> 60)
--- NOTE | 2018-12-01 22:07 | Emergency Department Note ---
Disposition Clinical Impression: Weakness Disposition: Admitted As Inpatient Condition: Fair Time of Disposition: 23:00 General Adult HPI - General Chief complaint: ED Weakness Stated complaint: weakness Time Seen by Provider: 12/01/18 20:54 Source: EMS Mode of arrival: EMS Limitations: no limitations - History of Present Illness Pain Scale: 0 - Related Data Home Medications Medication Instructions Recorded Confirmed Gabapentin [Neurontin] 100 mg PO 0800,1500 07/25/18 12/02/18 Gabapentin [Neurontin] 300 mg PO HS 07/25/18 12/02/18 Glimepiride [Amaryl] 1 mg PO QAM 07/25/18 12/02/18 Nystatin POWDER [Nystop] 1 appl TP TID PRN 07/25/18 12/02/18 Oxybutynin [Ditropan] 5 mg PO TID 07/25/18 12/02/18 Zolpidem Tartrate 5 mg PO HS PRN 07/25/18 12/02/18 Albuterol Sulfate [Proventil 2 puff IH Q6H PRN 07/29/18 12/02/18 Inhaler] Ascorbic Acid [Vitamin C] 500 mg PO DAILY 07/29/18 12/02/18 Aspirin [Lo-Dose Aspirin EC] 81 mg PO DAILY 07/29/18 12/02/18 Cyanocobalamin/Folic Acid [B-12 1 each SL DAILY 07/29/18 12/02/18 1,000 Mcg Sub Tablet] Multivitamin [Daily Multiple 1 each PO DAILY 07/29/18 12/02/18 Vitamin] Lactobacillus Combination No.8 1 cap PO DAILY 07/30/18 12/02/18 [Adult Probiotic] Furosemide [Lasix] 40 mg PO DAILY 12/02/18 12/02/18 Losartan Potassium 100 mg PO DAILY 12/02/18 12/02/18 Previous Rx's Medication Instructions Recorded Budesonide/Formoterol 160/4.5 2 puff IH BIDR #1 hfa.aer.ad 07/25/18 [Symbicort 160/4.5] Albuterol Sulfate 2.5 mg IH Q4H PRN #20 vial.neb 07/30/18 Carvedilol 3.125 mg PO BID #10 tab 07/30/18 Allergies Allergy/AdvReac Type Severity Reaction Status Date / Time doxycycline Allergy Rash Verified 12/02/18 20:47 Penicillins [PCN] Allergy Difficulty Verified 12/02/18 20:47 Breathing metformin AdvReac Diarrhea Verified 12/02/18 20:47 nitrofurantoin AdvReac Anaphylaxis Verified 12/02/18 20:47 sulfamethoxazole AdvReac Diarrhea Verified 12/02/18 20:47 [From Bactrim] trimethoprim [From Bactrim] AdvReac Diarrhea Verified 12/02/18 20:47 Constitutional: Reports: weakness. Denies: fever, chills Eyes: Denies: eye pain, eye discharge ENT ED: Denies: ear pain, throat pain Cardiovascular: Denies: chest pain, palpitations, paroxysmal nocturnal dyspnea Respiratory: Denies: cough, dyspnea Gastrointestinal: Reports: diarrhea. Denies: abdominal pain, nausea, vomiting Genitourinary: Denies: urgency, dysuria Musculoskeletal: Denies: back pain, neck pain Integumentary: Reports: abrasion (Right lower extremity chronic healing ulcer). Denies: rash Neurological: Denies: headache, weakness Psychiatric: Denies: anxiety, depression Endocrine: Denies: fatigue, heat or cold intolerance Hematological/Lymphatic: Denies: easy bleeding, easy bruising Allergic/Immunologic: Denies: facial swelling, urticaria Past Medical History - Past Medical History Medical history: Reports: arthritis, COPD, diabetes, hyperlipidemia, hypertension, venous stasis, other Surgical history: Reports: cholecystectomy, hysterectomy Psychiatric history: Reports: anxiety, depression METHODS EXAMINER history: Reports: no METHODS EXAMINER history - Social History Smoking Status: Never smoker Smokeless Tobacco Status: No Alcohol use: Reports: none Drug use: Reports: none Physical Exam - General Limitations: no limitations General appearance: alert, in no apparent distress Course Vital Signs Temperature 98.7 F 12/01/18 20:46 Pulse Rate 72 12/01/18 20:46 Respiratory Rate 20 12/01/18 20:46 Blood Pressure 140/112 12/01/18 20:46 O2 Sat by Pulse Oximetry 96 12/01/18 20:46 Temperature 97.9 F 12/02/18 19:28 Pulse Rate 81 12/02/18 19:28 Respiratory Rate 16 12/02/18 19:28 Blood Pressure 145/61 12/02/18 19:28 O2 Sat by Pulse Oximetry 97 12/02/18 19:28 Oxygen Delivery Oxygen Delivery Nasal Cannula Medical Decision Making - Lab Data Result diagrams: 12/02/18 05:02 12/02/18 05:02 Lab Results 12/01/18 12/01/18 12/01/18 Range/Units 21:29 21:29 21:29 WBC 12.9 H (4.3-11.1) K/mcL RBC 3.83 (3.82-4.97) M/mcL Hgb 10.9 L (11.5-15.4) g/dL Hct 37.0 (35.3-44.9) % MCV 96.6 (83.0-100.0) fL MCH 28.5 (28.0-33.3) pg MCHC 29.5 L (31.6-35.5) g/dL RDW 13.7 (11.5-14.5) % Plt Count 260 (140-400) K/mcL MPV 9.1 L (9.4-12.4) fL Immature Gran % 0.4 (0-4) % Seg Neutrophils % 76.8 % Lymphocytes % 13.1 % Monocytes % 6.3 % Eosinophils % 3.0 % Basophils % 0.4 % Neutrophils # 9.9 H (1.6-8.9) K/mcL Lymphocytes # 1.7 (0.6-4.6) K/mcL Monocytes # 0.8 (0.0-1.3) K/mcL Eosinophils # 0.4 (0.0-0.6) K/mcL Basophils # 0.1 (0.0-0.2) K/mcL PT 11.8 (9.4-12.1) Seconds INR 1.0 APTT 31.3 (26.0-36.0) Seconds Sodium 134 L (136-145) mEq/L Potassium 5.2 H (3.5-5.1) mEq/L Chloride 93 L (98-107) mEq/L Carbon Dioxide 35 H (23-29) mEq/L BUN 29 H (8-23) mg/dL Creatinine 0.88 (0.60-1.20) mg/dL Est GFR ( Amer) > 60 (> 60) Est GFR (Non-Af Amer) > 60 (> 60) BUN/Creatinine Ratio 33 H (6-26) Glucose 195 H (70-105) mg/dL Calculated Osmolality 289 (280-300) Lactic Acid (0.5-2.2) mmol/L Calcium 9.4 (8.6-10.3) mg/dL Phosphorus 4.2 (2.7-4.5) mg/dL Magnesium 2.3 (1.6-2.6) mg/dL Total Bilirubin 0.4 (0.3-1.0) mg/dL Direct Bilirubin 0.1 (0.0-0.2) mg/dL Indirect Bilirubin 0.3 (0.0-1.2) mg/dL AST 15 (13-39) Units/L ALT 10 (7-52) Units/L Alkaline Phosphatase 65 (34-104) Units/L Troponin I < 0.03 (< 0.04) ng/mL Serum Total Protein 7.2 (6.4-8.9) g/dL Albumin 3.4 L (3.5-5.7) g/dL Globulin 3.8 H (2.4-3.5) g/dL Albumin/Globulin Ratio 0.9 L (1.1-2.2) Urine Color (Yellow) Urine Clarity (Clear) Urine pH (5.0-8.0) pH Units Ur Specific [place] (1.010-1.025) Urine Protein (Neg-Trace) mg/dL Urine Glucose (UA) (Normal) mg/dL Urine Ketones (Negative) mg/dL Urine Blood (Negative) Urine Nitrite (Negative) Urine Bilirubin (Negative) Urine Urobilinogen (Normal) mg/dL Ur Leukocyte Esterase (Negative) Urine Microscopic RBC (0-3) per hpf Urine Microscopic WBC (0-3) per hpf Ur Squamous Epith Cells (None-Few) per lpf Urine Bacteria (None-Few) per hpf Hyaline Casts (None-Few) per lpf Ur Culture Indicated? (NO) 12/01/18 12/01/18 12/02/18 Range/Units 21:29 23:27 01:24 WBC (4.3-11.1) K/mcL RBC (3.82-4.97) M/mcL Hgb (11.5-15.4) g/dL Hct (35.3-44.9) % MCV (83.0-100.0) fL MCH (28.0-33.3) pg MCHC (31.6-35.5) g/dL RDW (11.5-14.5) % Plt Count (140-400) K/mcL MPV (9.4-12.4) fL Immature Gran % (0-4) % Seg Neutrophils % % Lymphocytes % % Monocytes % % Eosinophils % % Basophils % % Neutrophils # (1.6-8.9) K/mcL Lymphocytes # (0.6-4.6) K/mcL Monocytes # (0.0-1.3) K/mcL Eosinophils # (0.0-0.6) K/mcL Basophils # (0.0-0.2) K/mcL PT (9.4-12.1) Seconds INR APTT (26.0-36.0) Seconds Sodium (136-145) mEq/L Potassium (3.5-5.1) mEq/L Chloride (98-107) mEq/L Carbon Dioxide (23-29) mEq/L BUN (8-23) mg/dL Creatinine (0.60-1.20) mg/dL Est GFR ( Amer) (> 60) Est GFR (Non-Af Amer) (> 60) BUN/Creatinine Ratio (6-26) Glucose (70-105) mg/dL Calculated Osmolality (280-300) Lactic Acid 2.4 H 1.0 (0.5-2.2) mmol/L Calcium (8.6-10.3) mg/dL Phosphorus (2.7-4.5) mg/dL Magnesium (1.6-2.6) mg/dL Total Bilirubin (0.3-1.0) mg/dL Direct Bilirubin (0.0-0.2) mg/dL Indirect Bilirubin (0.0-1.2) mg/dL AST (13-39) Units/L ALT (7-52) Units/L Alkaline Phosphatase (34-104) Units/L Troponin I (< 0.04) ng/mL Serum Total Protein (6.4-8.9) g/dL Albumin (3.5-5.7) g/dL Globulin (2.4-3.5) g/dL Albumin/Globulin Ratio (1.1-2.2) Urine Color Yellow (Yellow) Urine Clarity Cloudy A (Clear) Urine pH 6.5 (5.0-8.0) pH Units Ur Specific [place] 1.024 (1.010-1.025) Urine Protein 30 H (Neg-Trace) mg/dL Urine Glucose (UA) Normal (Normal) mg/dL Urine Ketones Negative (Negative) mg/dL Urine Blood Large H (Negative) Urine Nitrite Negative (Negative) Urine Bilirubin Negative (Negative) Urine Urobilinogen Normal (Normal) mg/dL Ur Leukocyte Esterase Large H (Negative) Urine Microscopic RBC 5-15 H (0-3) per hpf Urine Microscopic WBC 15-30 H (0-3) per hpf Ur Squamous Epith Cells Few (None-Few) per lpf Urine Bacteria Moderate H (None-Few) per hpf Hyaline Casts Moderate H (None-Few) per lpf Ur Culture Indicated? YES A (NO) Attestation Statement - Attestation Attestation: I examined this patient and my medical decision-making was reviewed with the Resident Physician. I agree with the documented findings, disposition and treatment plan as described except to the extent set forth below. Patient 83-year-old female presents to emergency department with chief complaint of generalized weakness. The patient reports that she has been feeling weaker than normal and states that today she has been having multiple episodes of diarrhea and that whenever she was on the toilet having diarrhea she was unable to get up and ambulate on her own. Exam patient awake alert no acute distress resting comfortably on the stretcher. Medical decision management the patient was evaluated from an infectious and electrolyte abnormality standpoint. Plan will be to hydrate the patient and determine if there is an infectious cause the plan most likely will require the patient to be admitted to the hospital I personally supervised and was present for the peck/critical portions of the following procedures completed by the resident:EKG.
[2018-12-02 00:20] LABS: Bilirubin,Urine Negative (Negative); Blood,Urine Large (Negative); Clarity,Urine Cloudy (Clear); Color,Urine Yellow (Yellow); Glucose,Urine (UA) Normal (Normal); Ketones,Urine Negative (Negative); Leukocyte Esterase,Urine Large (Negative); Nitrite,Urine Negative (Negative); PH,Urine 6.5 pH Units (5.0-8.0); Protein,Urine 30 mg/dL (Neg-Trace); Specific Gravity,Urine 1.024 (1.010-1.025); Urobilinogen,Urine Normal (Normal)
[2018-12-02] MEDS ORDERED: Ipratropium/Albuterol Neb 3 ML IH ONE (00:25)
[2018-12-02 00:32] LABS: Bacteria,Urine Moderate per hpf (None-Few); Hyaline Casts,Urine Moderate per lpf (None-Few); Squamous Epithelial Cell,Urine Few per lpf (None-Few); WBC,Urine 15-30 per hpf (0-3)
[2018-12-02] MEDS ORDERED: cefTRIAXone 1,000 MG in Water for inj. (sterile) 10 ML IVP ONE (01:14)
[2018-12-02] MEDS ORDERED: Naloxone 0.4 MG/ML INJ IVP PRN (04:15)
[2018-12-02] MEDS ORDERED: D5% in Water 1,000 ML IVC PRN (04:19)
[2018-12-02] MEDS ORDERED: *HR* Dextrose 50 % in Water (Syg) 50 ML SYRINGE IVP PRN (04:19)
[2018-12-02] MEDS ORDERED: Dextrose Gel 15 GM/37.5 ML TUBE PO PRN ×2 (04:19)
--- NOTE | 2018-12-02 04:47 | Internal Med History&Physical ---
Date of Encounter: 12/02/18 Time of Encounter: 03:30 Internal Medicine - H&P: HPI Chief complaint: Diarrhea, Generalized Weakness Admitted From: Home Plans for Post Hospital Care: Home History of present illness: Ms. Mo is a 83 year old female with past medical history significant for hypertension, hyperlipidemia, COPD on 2 LPM nasal cannula continuous, diabetes, arthritis, chronic venous stasis with lower extremity ulcers, chronic chronic suprapubic catheter, anxiety, and depression who presents for complaints of diarrhea and generalized weakness since yesterday. Reports she has had 5-7 episodes of diarrhea and as a result has felt weaker than normal. Denies any fevers, chills, nausea, vomiting, abdominal pain, or other associated symptoms. Denies any blood in her stool. Reports being treated for UTI around 2 months ago which she felt resolved as she reports normally being aware when she has a UTI. ER reported EKG as sinus rhythm with no acute ST changes, no acute T-wave changes, and no other signs of ischemia and unchanged when compared to EKG from 07/29/2018. ER also obtained a chest x-ray showed no acute disease. ER also obtained a CT abdomen and pelvis which showed no acute process. While in ER patient received IV antibiotics, IV fluids, and breathing treatment. ER also replaced patients suprapubic catheter. Currently reports she is feeling fine and has not had any more diarrhea. Currently denies any headache, numbness, tingling, chest pain, shortness of breath above baseline, abdominal pain, or bladder changes. Reports she follows regularly with PCP, neurology, cardiology, podiatry, and wound care. Reports checking her blood sugars regularly at home and they have been averaging in the low 100s. Reports she lives alone but has home health coming in regularly and help from her son. Past Med Surg Social Fam HX - Past Medical History Medical history: arthritis, COPD, diabetes, hyperlipidemia, hypertension, venous stasis, other Additional medical history: Skin Cancer, Obesity Psychiatric history: anxiety, depression - Past Surgical History Surgical History: cholecystectomy, hysterectomy Additional surgical history: Urostomy, - Social History Smoking Status: Never smoker Smokeless Tobacco Status: No Alcohol use: none Drug use: none - Family History Father Living Status: Hx Family Cardiac Disorders: Yes Hx Family Respiratory Disorders: No Hx Family Cancer: Yes (Leukemia) Hx Family GI Disorders: No Hx Family Endocrine Disorder: Yes Hx Family Neuromuscular Disorders: No Hx Family Neurologic Disorders: No Hx Family HEENT Disorders: No Hx Family Autoimmune Disorders: No Mother Adopted: Yes Living Status: Hx Family Cardiac Disorders: Yes Hx Family Respiratory Disorders: No Hx Family Cancer: Yes (Multiple myeloma) Hx Family GI Disorders: No Hx Family Endocrine Disorder: Yes Hx Family Neuromuscular Disorders: No Hx Family Neurologic Disorders: No Hx Family HEENT Disorders: No Hx Family Autoimmune Disorders: No Sister Living Status: Hx Family Cancer: Yes (Brain tumor) Internal Medicine - H&P: Meds Losartan [Cozaar] 100 mg PO DAILY 01/07/15 [History] Budesonide/Formoterol 160/4.5 [Symbicort 160/4.5] 2 puff IH BIDR #1 hfa.aer.ad 07/25/18 [Rx] Furosemide [Lasix] 20 mg PO DAILY 07/25/18 [History] Gabapentin [Neurontin] 100 mg PO 0800,1500 07/25/18 [History] Gabapentin [Neurontin] 100 mg PO HS 07/25/18 [History] Glimepiride [Amaryl] 1 mg PO QAM 07/25/18 [History] Nystatin POWDER [Nystop] 1 appl TP TID PRN 07/25/18 [History] Oxybutynin [Ditropan] 5 mg PO TID 07/25/18 [History] Zolpidem Tartrate 5 mg PO HS PRN 07/25/18 [History] Albuterol Sulfate [Proventil Inhaler] 2 puff IH Q6H PRN 07/29/18 [History] Ascorbic Acid [Vitamin C] 500 mg PO DAILY 07/29/18 [History] Aspirin [Lo-Dose Aspirin EC] 81 mg PO DAILY 07/29/18 [History] Cyanocobalamin/Folic Acid [B-12 1,000 Mcg Sub Tablet] 1 each SL DAILY 07/29/18 [History] Multivitamin [Daily Multiple Vitamin] 1 each PO DAILY 07/29/18 [History] Albuterol Sulfate 2.5 mg IH Q4H PRN #20 vial.neb 07/30/18 [Rx] Carvedilol 3.125 mg PO BID #10 tab 07/30/18 [Rx] Lactobacillus Combination No.8 [Adult Probiotic] 1 cap PO DAILY 07/30/18 [History] Allergy/AdvReac Type Severity Reaction Status Date / Time doxycycline Allergy Rash Verified 10/08/17 14:23 Penicillins [PCN] Allergy Difficulty Verified 10/08/17 14:23 Breathing metformin AdvReac Diarrhea Verified 10/08/17 14:23 nitrofurantoin AdvReac Anaphylaxis Verified 10/08/17 14:23 sulfamethoxazole AdvReac Diarrhea Verified 10/08/17 14:23 [From Bactrim] trimethoprim [From Bactrim] AdvReac Diarrhea Verified 10/08/17 14:23 All Systems PM: A 10-system review of systems was performed and is negative for pertinent findings except as documented above in the HPI. - Constitutional Vitals: Temp Pulse Resp BP Pulse Ox 98.0 F 79 17 163/66 95 12/02/18 03:27 12/02/18 03:27 12/02/18 03:27 12/02/18 03:27 12/02/18 03:27 Exam: General: Alert and oriented. Calm in no distress. Skin:Normal color, no rash. Chronic venous stasis noted to bilateral lower extremities. Left lower extremity dressing dry and intact. HEENT:Pupils equal, round and reactive. Cardiovascular:Normal S1 & S2, no rubs, murmurs or gallops. No JVD. Pulse regular. Lungs: Breath sounds decreased, no wheezes or crackles. Abdomen:Soft, non-tender, no rigidity. Extremities:No deformity, no joint swelling, or clubbing. Nonpitting bilateral lower extremity edema noted. Neurological:Normal cognition and motor skills. Pulses:Carotid and radial pulses normal +2. Rest of the physical exam is non contributory. Internal Med - H&P Results - Labs CBC & Chem 7: 12/01/18 21:29 12/01/18 21:29 Labs: Short CBC 12/01/18 Range/Units 21:29 WBC 12.9 H (4.3-11.1) K/mcL Hgb 10.9 L (11.5-15.4) g/dL Hct 37.0 (35.3-44.9) % Plt Count 260 (140-400) K/mcL Neutrophils # 9.9 H (1.6-8.9) K/mcL BMP 12/01/18 21:29 Sodium 134 L Potassium 5.2 H Chloride 93 L Carbon Dioxide 35 H BUN 29 H Creatinine 0.88 Glucose 195 H Calcium 9.4 Cardiac Enzymes 12/01/18 Range/Units 21:29 Troponin I < 0.03 (< 0.04) ng/mL Liver Function 12/01/18 Range/Units 21:29 Total Bilirubin 0.4 (0.3-1.0) mg/dL Direct Bilirubin 0.1 (0.0-0.2) mg/dL AST 15 (13-39) Units/L ALT 10 (7-52) Units/L Alkaline Phosphatase 65 (34-104) Units/L Albumin 3.4 L (3.5-5.7) g/dL Urine 12/01/18 Range/Units 23:27 Urine Color Yellow (Yellow) Urine Clarity Cloudy A (Clear) Urine pH 6.5 (5.0-8.0) pH Units Ur Specific [place] 1.024 (1.010-1.025) Urine Protein 30 H (Neg-Trace) mg/dL Urine Glucose (UA) Normal (Normal) mg/dL - Impressions ITS Impressions Chest X-Ray 12/01/18 20:56 IMPRESSION: No acute disease. D/ / Lewis Hemphill MD / Lewis Hemphill MD Interpreting Provider: Lewis Hemphill MD Abdomen/Pelvis CT 12/01/18 21:15 IMPRESSION: No acute process identified. D/ / Lewis Hemphill MD / Lewis Hemphill MD Interpreting Provider: Lewis Hemphill MD - Assessment and Plan (1) Urinary tract infection Current Visit: Yes Status: Acute Assessment and plan: UA obtained in ER showed cloudy urine with large amount blood, large leukocyte esterase, red blood cells, white blood cells, bacteria, and hyaline casts. Patient states she is normally able to tell when she has a UTI and currently did not think she had one. Patient has a chronic suprapubic catheter which ER exchanged. ER started patient on ceftriaxone, will continue. Blood and urine cultures pending. Qualifiers: Encounter type: initial encounter Qualified Code(s): T83.511A - Infection and inflammatory reaction due to indwelling urethral catheter, initial encounter; N39.0 - Urinary tract infection, site not specified (2) Diarrhea Current Visit: Yes Status: Acute Assessment and plan: Reports 5-7 episodes of diarrhea since yesterday. Denies any blood in stool, fevers, chills, nausea, vomiting, abdominal pain, or other associated symptoms. Denies any more episodes of diarrhea since arrival. If reoccurs obtain stool sample. ER obtained a CT of abdomen and pelvis which showed no acute process. Encourage PO intake. Qualifiers: Diarrhea type: unspecified type Qualified Code(s): R19.7 - Diarrhea, unspecified (3) Weakness Current Visit: Yes Status: Acute Assessment and plan: Likely secondary to multiple episodes of diarrhea. Plan as stated above. (4) Increased white blood cell count Current Visit: Yes Status: Acute Assessment and plan: Likely secondary to suspected UTI. Urine and blood cultures ordered. Repeat labs ordered. Qualifiers: Leukocytosis type: unspecified Qualified Code(s): D72.829 - Elevated white blood cell count, unspecified (5) Elevated lactic acid level Current Visit: Yes Status: Acute Assessment and plan: Lactic acid elevated at 2.4 on admission likely secondary to suspected UTI. Following fluid resuscitation received in ER improved to 1.0. Plan as stated above. (6) Decreased hemoglobin Current Visit: Yes Status: Acute Assessment and plan: Hemoglobin slightly decreased at 10.9. Denies any blood loss. Repeat labs ordered. (7) Hyponatremia Current Visit: Yes Status: Acute Assessment and plan: Slightly decreased at 134. Received fluids in the ER. Repeat labs ordered. (8) Hyperkalemia Current Visit: Yes Status: Acute Assessment and plan: Minimally increased at 5.2. Repeat labs ordered. (9) Chronic venous stasis Current Visit: Yes Status: Chronic Assessment and plan: Patient has bilateral lower extremity chronic venous stasis with ulcers. Currently receiving in-home wound care for same. Wound care consult for management while admitted. (10) Elevated blood urea nitrogen Current Visit: Yes Status: Chronic Assessment and plan: Chronic. Elevated at 29. Creatinine and GFR within normal limits. Repeat labs ordered. (11) COPD (chronic obstructive pulmonary disease) Current Visit: Yes Status: Chronic Assessment and plan: Not in acute exacerbation. Wears 2 LPM nasal cannula oxygen continuously. Resume home medications once verified. Qualifiers: COPD type: unspecified COPD Qualified Code(s): J44.9 - Chronic obstructive pulmonary disease, unspecified (12) Diabetes mellitus Current Visit: Yes Status: Chronic Assessment and plan: Hold home diabetic medications. Sliding scale insulin ordered. Accu-Chek's ordered. Qualifiers: Qualified Code(s): E11.9 - Type 2 diabetes mellitus without complications - Time Spent With Patient Total time spent is greater than 50% in coordination of care (as documented) at patient's floor/unit and/or counseling patient:
[2018-12-02 05:28] LABS: Basophils % 0.4 %; Eosinophils # 0.4 K/mcL (0.0-0.6); Eosinophils % 3.9 %; Hematocrit 34.3 % (35.3-44.9); Hemoglobin 10.1 g/dL (11.5-15.4); Immature Granulocytes % 0.3 % (0-4); Lymphocytes # 1.6 K/mcL (0.6-4.6); Lymphocytes % 16.7 %; Mean Corpuscular HGB Conc 29.4 g/dL (31.6-35.5); Mean Corpuscular Hemoglobin 28.8 pg (28.0-33.3); Mean Corpuscular Volume 97.7 fL (83.0-100.0); Mean Platelet Volume 10.1 fL (9.4-12.4); Monocytes # 0.6 K/mcL (0.0-1.3); Monocytes % 6.5 %; Platelet Count 196 K/mcL (140-400); Red Blood Count 3.51 M/mcL (3.82-4.97); Red Cell Distribution Width 13.9 % (11.5-14.5); Segmented Neutrophils % 72.2 %; White Blood Count 9.7 K/mcL (4.3-11.1)
[2018-12-02 05:38] LABS: Alanine Aminotransferase 8 Units/L (7-52); Albumin 3.1 g/dL (3.5-5.7); Albumin/Globulin Ratio 0.9 (1.1-2.2); Alkaline Phosphatase 57 Units/L (34-104); Aspartate Amino Transferase 14 Units/L (13-39); BUN/Creatinine Ratio 30 (6-26); Bilirubin,Total 0.3 mg/dL (0.3-1.0); Blood Urea Nitrogen 24 mg/dL (8-23); Calcium 8.7 mg/dL (8.6-10.3); Carbon Dioxide 35 mEq/L (23-29); Chloride 99 mEq/L (98-107); Globulin 3.4 g/dL (2.4-3.5); Glucose 173 mg/dL (70-105); Osmolality,Calculated 288 (280-300); Potassium 4.5 mEq/L (3.5-5.1); Sodium 135 mEq/L (136-145); Total Protein 6.5 g/dL (6.4-8.9); eGFR For African Americans > 60 (> 60); eGFR For Non-African Americans > 60 (> 60)
[2018-12-02] MEDS: Insulin LISPRO 300 UNITS/3 ML VIAL SQ SCH ×3 (08:01→17:55)
--- NOTE | 2018-12-02 09:34 | Electrocardiograph Report ---
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
[2018-12-02] MEDS ORDERED: Nystatin POWDER 30 GM BOTTLE TP PRN (11:22)
[2018-12-02] MEDS: Aspirin Enteric Coated 81 MG Tablet PO SCH (12:10)
[2018-12-02] MEDS: Vitamin B Complex/Vit C/Vit E 1 EACH TABLET PO SCH (12:10)
[2018-12-02] MEDS: Budesonide/Formoterol 160/4.5 1 PUFF INH IH SCH ×2 (13:09→22:07)
--- NOTE | 2018-12-02 14:04 | Internal Med Progress Note ---
Hospitalist Progress Note - Encounter Date of Encounter: 12/02/18 Time of Encounter: 14:04 - Subjective Interval History: Ms. Mo is a 83 year old female with past medical history significant for hypertension, hyperlipidemia, COPD on 2 LPM nasal cannula continuous, diabetes, arthritis, chronic venous stasis with lower extremity ulcers, chronic suprapubic catheter, anxiety, and depression pt presented to ER with diarrhea and generalized weakness since yesterday. Reports she has had 5-7 episodes of diarrhea and as a result has felt weaker than normal. She was treated for UTI a month ago. Current UA seems to be abnormal consistent with UTI. She was admitted in the hospital and placed her on empirical IV antibiotic. Patient stated she still have diarrhea, had 2 BMs so far. - Exam Vitals: Temp Pulse Resp BP Pulse Ox 97.9 F 70 18 148/67 96 12/02/18 11:22 12/02/18 11:22 12/02/18 11:22 12/02/18 11:22 12/02/18 11:22 Exam: Gen: Alert, awake, Oriented to time,place and person Chest: Diminished breath sounds B/L, No wheezing, No crackles, No rales Heart: S1S2+ RRR No murmurs Abd: Soft, NT, BS +, No organomegaly : suprapubic catheter... erythema over lower abd skin folds Ext: chronic venous stasis changes, No calf tenderness. Neuro : No acute focal neuro deficits noticed Skin: No rash. - Assessment and Plan (1) Urinary tract infection Current Visit: Yes Status: Acute Assessment and Plan: cont empirical abx IV Rocephin will f/u on urine cx (2) Diarrhea Current Visit: Yes Status: Acute Assessment and Plan: CT of abdomen and pelvis which showed no acute process with the recent antibiotic usage concerning for C diff infection Ordered C. Diff toxin and GI Stool panel Encourage PO intake. (3) Chronic venous stasis Current Visit: Yes Status: Chronic Assessment and Plan: Continue local wound care (4) Weakness Current Visit: Yes Status: Acute Assessment and Plan: Likely secondary to multiple episodes of diarrhea. Continue symptomatic and supportive care (5) Hyponatremia Current Visit: Yes Status: Acute Assessment and Plan: Due to dehydration improved (6) Hyperkalemia Current Visit: Yes Status: Acute Assessment and Plan: Due to dehydration resolved (7) COPD (chronic obstructive pulmonary disease) Current Visit: Yes Status: Chronic Assessment and Plan: Not in acute exacerbation. Wears 2 LPM nasal cannula oxygen continuously cont home medications (8) Diabetes mellitus Current Visit: Yes Status: Chronic Assessment and Plan: ADA diet on ISS - Time Spent with Patient Total time spent is greater than 50% in coordination of care (as documented) at patient's floor/unit and/or counseling patient: Internal Medicine: Result - Labs CBC & Chem 7: 12/02/18 05:02 12/02/18 05:02 Labs: Short CBC 12/01/18 12/02/18 Range/Units 21:29 05:02 WBC 12.9 H 9.7 (4.3-11.1) K/mcL Hgb 10.9 L 10.1 L (11.5-15.4) g/dL Hct 37.0 34.3 L (35.3-44.9) % Plt Count 260 196 (140-400) K/mcL Neutrophils # 9.9 H 7.0 (1.6-8.9) K/mcL BMP 12/01/18 12/02/18 21:29 05:02 Sodium 134 L 135 L Potassium 5.2 H 4.5 Chloride 93 L 99 Carbon Dioxide 35 H 35 H BUN 29 H 24 H Creatinine 0.88 0.81 Glucose 195 H 173 H Calcium 9.4 8.7 Cardiac Enzymes 12/01/18 Range/Units 21:29 Troponin I < 0.03 (< 0.04) ng/mL Liver Function 12/01/18 12/02/18 Range/Units 21:29 05:02 Total Bilirubin 0.4 0.3 (0.3-1.0) mg/dL Direct Bilirubin 0.1 (0.0-0.2) mg/dL AST 15 14 (13-39) Units/L ALT 10 8 (7-52) Units/L Alkaline Phosphatase 65 57 (34-104) Units/L Albumin 3.4 L 3.1 L (3.5-5.7) g/dL Urine 12/01/18 Range/Units 23:27 Urine Color Yellow (Yellow) Urine Clarity Cloudy A (Clear) Urine pH 6.5 (5.0-8.0) pH Units Ur Specific [place] 1.024 (1.010-1.025) Urine Protein 30 H (Neg-Trace) mg/dL Urine Glucose (UA) Normal (Normal) mg/dL - ABG Interpretation ABG results: PT/INR, D-dimer PT 11.8 Seconds (9.4-12.1) 12/01/18 21:29 - Impressions Impressions Chest X-Ray 12/01/18 20:56 IMPRESSION: No acute disease. D/ / Lewis Hemphill MD / Lewis Hemphill MD Interpreting Provider: Lewis Hemphill MD Abdomen/Pelvis CT 12/01/18 21:15 IMPRESSION: No acute process identified. D/ / Lewis Hemphill MD / Lewis Hemphill MD Interpreting Provider: Lewis Hemphill MD Consult Discharge Plan - Plan Referrals: Sascha Baugh MD [Partnered Physician] - (Appointment has been requested.) Marc Rodriguez DO [Partnered Physician] - 12/04/18 10:00 am Errol Briceno MD [Partnered Physician] - 07/02/19 10:30 am Jacquie Cardona DO [Partnered Physician] - 02/12/19 3:10 pm (1) Urinary tract infection Qualifiers: Encounter type: initial encounter Qualified Code(s): T83.511A - Infection and inflammatory reaction due to indwelling urethral catheter, initial encounter; N39.0 - Urinary tract infection, site not specified (2) Diarrhea Qualifiers: Diarrhea type: unspecified type Qualified Code(s): R19.7 - Diarrhea, unspecified (7) COPD (chronic obstructive pulmonary disease) Qualifiers: COPD type: unspecified COPD Qualified Code(s): J44.9 - Chronic obstructive pulmonary disease, unspecified (8) Diabetes mellitus Qualifiers: Qualified Code(s): E11.9 - Type 2 diabetes mellitus without complications
[2018-12-02] MEDS: Gabapentin 100 MG CAPSULE PO SCH (15:21)
[2018-12-02] MEDS ORDERED: Gabapentin 100 MG CAPSULE PO SCH (21:00)
[2018-12-02] MEDS: Albuterol 2.5 MG/3 ML NEBULIZER IH PRN (22:07)
[2018-12-03] MEDS: Albuterol 2.5 MG/3 ML NEBULIZER IH PRN (07:41)
[2018-12-03] MEDS: Budesonide/Formoterol 160/4.5 1 PUFF INH IH SCH (07:41)
[2018-12-03] MEDS: Vitamin B Complex/Vit C/Vit E 1 EACH TABLET PO SCH (08:58)
[2018-12-03] MEDS: Aspirin Enteric Coated 81 MG Tablet PO SCH (08:59)
[2018-12-03] MEDS: Gabapentin 100 MG CAPSULE PO SCH (08:59)
[2018-12-03] MEDS: Insulin LISPRO 300 UNITS/3 ML VIAL SQ SCH ×2 (08:59→13:25)
[2018-12-03] MEDS ORDERED: Furosemide 20 MG TABLET PO SCH (09:00)
[2018-12-03] MEDS ORDERED: cefTRIAXone 1,000 MG in Water for inj. (sterile) 10 ML IVP SCH (09:00)
[2018-12-03] MEDS ORDERED: Multivit/Ca/Min/Fe/FA 1 TAB TABLET PO SCH (09:00)
[2018-12-03] MEDS ORDERED: Ascorbic Acid 500 MG TABLET PO SCH (09:00)
--- NOTE | 2018-12-03 11:05 | Discharge Summary ---
- NOTES TO OUTPATIENT PROVIDER Notes to Outpatient Provider: f/u with PCP in one week. Orders not resulted at time of discharge: Pending orders 12/01/18 21:29 Culture,Blood [BC] Stat 12/02/18 11:21 C.difficile Toxin PCR (>=2yo) [MOLMIC] Routine GI Panel,Stool [MOLMIC] Routine 12/03/18 10:13 MRSA Surveillance Screen [MOLMIC] Routine Date of Encounter: 12/03/18 Time of Encounter: 09:45 - Discharge Diagnosis (1) Urinary tract infection Priority: Primary Status: Acute Qualifiers: Encounter type: initial encounter Qualified Code(s): T83.511A - Infection and inflammatory reaction due to indwelling urethral catheter, initial encounter; N39.0 - Urinary tract infection, site not specified (2) Diarrhea Priority: Primary Status: Acute Qualifiers: Diarrhea type: unspecified type Qualified Code(s): R19.7 - Diarrhea, unspecified (3) Chronic venous stasis Priority: Secondary Status: Chronic (4) Weakness Priority: Secondary Status: Acute (5) Hyponatremia Priority: Secondary Status: Acute (6) Hyperkalemia Priority: Secondary Status: Acute (7) COPD (chronic obstructive pulmonary disease) Priority: Secondary Status: Chronic Qualifiers: COPD type: unspecified COPD Qualified Code(s): J44.9 - Chronic obstructive pulmonary disease, unspecified (8) Diabetes mellitus Priority: Secondary Status: Chronic Qualifiers: Qualified Code(s): E11.9 - Type 2 diabetes mellitus without complications Hospital course: Ms. Mo is a 83 year old female with past medical history significant for hypertension, hyperlipidemia, COPD on 2 LPM nasal cannula continuous, diabetes, arthritis, chronic venous stasis with lower extremity ulcers, chronic suprapubic catheter, anxiety, and depression pt presented to ER with diarrhea and generalized weakness since yesterday. Reports she has had 5-7 episodes of diarrhea and as a result has felt weaker than normal. She was treated for UTI a month ago. Current UA seems to be abnormal consistent with UTI. She was admitted in the hospital and placed her on empirical IV antibiotic. She was continued on symptomatic and supportive care. Pt stated she is feeling better today. Her diarrhea resolved. She does have moderate erythema between her skin fold in lower abd, so recommend to use Nystatin cream. Her Urine cx did not grow any bacteria, however initially she presented with symptoms so will treat her with 5 days of abx. She does have chronic non helaing venous stasis ulcer over Rt leg, wound care evaluated the pt and provided instruction for wound care at home. - Time Spent with Patient Total time spent providing and/or coordinating discharge services: - Discharge Medications Prescriptions: New Cephalexin [Keflex] 500 mg PO TID #15 Nystatin Cream [Mycostatin Cream] 1 appl TP BID #2 tube Continued Budesonide/Formoterol 160/4.5 [Symbicort 160/4.5] 2 puff IH BIDR #1 hfa.aer.ad Zolpidem Tartrate 5 mg PO HS PRN PRN Reason: Sleep Oxybutynin [Ditropan] 5 mg PO TID Gabapentin [Neurontin] 100 mg PO 0800,1500 Gabapentin [Neurontin] 300 mg PO HS Nystatin POWDER [Nystop] 1 appl TP TID PRN PRN Reason: IRRITATION Glimepiride [Amaryl] 1 mg PO QAM Aspirin [Lo-Dose Aspirin EC] 81 mg PO DAILY Albuterol Sulfate [Proventil Inhaler] 2 puff IH Q6H PRN PRN Reason: Wheezing Cyanocobalamin/Folic Acid [B-12 1,000 Mcg Sub Tablet] 1 each SL DAILY Ascorbic Acid [Vitamin C] 500 mg PO DAILY Multivitamin [Daily Multiple Vitamin] 1 each PO DAILY Lactobacillus Combination No.8 [Adult Probiotic] 1 cap PO DAILY Carvedilol 3.125 mg PO BID #10 tab Albuterol Sulfate 2.5 mg IH Q4H PRN #20 vial.neb PRN Reason: Wheezing Furosemide [Lasix] 40 mg PO DAILY Losartan Potassium 100 mg PO DAILY Home Medications: Budesonide/Formoterol 160/4.5 [Symbicort 160/4.5] 2 puff IH BIDR #1 hfa.aer.ad 07/25/18 [Rx] Gabapentin [Neurontin] 100 mg PO 0800,1500 07/25/18 [History] Gabapentin [Neurontin] 300 mg PO HS 07/25/18 [History] Glimepiride [Amaryl] 1 mg PO QAM 07/25/18 [History] Nystatin POWDER [Nystop] 1 appl TP TID PRN 07/25/18 [History] Oxybutynin [Ditropan] 5 mg PO TID 07/25/18 [History] Zolpidem Tartrate 5 mg PO HS PRN 07/25/18 [History] Albuterol Sulfate [Proventil Inhaler] 2 puff IH Q6H PRN 07/29/18 [History] Ascorbic Acid [Vitamin C] 500 mg PO DAILY 07/29/18 [History] Aspirin [Lo-Dose Aspirin EC] 81 mg PO DAILY 07/29/18 [History] Cyanocobalamin/Folic Acid [B-12 1,000 Mcg Sub Tablet] 1 each SL DAILY 07/29/18 [History] Multivitamin [Daily Multiple Vitamin] 1 each PO DAILY 07/29/18 [History] Albuterol Sulfate 2.5 mg IH Q4H PRN #20 vial.neb 07/30/18 [Rx] Carvedilol 3.125 mg PO BID #10 tab 07/30/18 [Rx] Lactobacillus Combination No.8 [Adult Probiotic] 1 cap PO DAILY 07/30/18 [History] Furosemide [Lasix] 40 mg PO DAILY 12/02/18 [History] Losartan Potassium 100 mg PO DAILY 12/02/18 [History] Cephalexin [Keflex] 500 mg PO TID #15 12/03/18 [Rx] Nystatin Cream [Mycostatin Cream] 1 appl TP BID #2 tube 12/03/18 [Rx] Allergies/Adverse Reactions: Allergy/AdvReac Type Severity Reaction Status Date / Time doxycycline Allergy Rash Verified 12/02/18 20:47 Penicillins [PCN] Allergy Difficulty Verified 12/02/18 20:47 Breathing metformin AdvReac Diarrhea Verified 12/02/18 20:47 nitrofurantoin AdvReac Anaphylaxis Verified 12/02/18 20:47 sulfamethoxazole AdvReac Diarrhea Verified 12/02/18 20:47 [From Bactrim] trimethoprim [From Bactrim] AdvReac Diarrhea Verified 12/02/18 20:47 Date of admission: 12/02/18 01:36 Primary care physician: PCP NONE Consults: 12/02/18 04:33 Consult to Wound Care [CONS] Routine Reason for Consult: Chronic venous stasis ulcers to bilateral lower ex tremities. Receives wound care at home. Please see for recommendations during admission. Call Completed: No - Constitutional Vitals: Temp Pulse Resp BP Pulse Ox 98.1 F 74 16 156/81 97 12/03/18 06:51 12/03/18 06:51 12/03/18 06:51 12/03/18 06:51 12/03/18 06:51 General appearance: Present: A&O X 3, no acute distress, answers questions appropriately Exam: Gen: Alert, awake, Oriented to time,place and person Chest: Diminished breath sounds B/L, No wheezing, No crackles, No rales Heart: S1S2+ RRR No murmurs Abd: Soft, NT, BS +, No organomegaly : suprapubic catheter... erythema over lower abd skin folds Ext: chronic venous stasis changes and non healing ulcer over Rt leg noticed, No calf tenderness. Neuro : No acute focal neuro deficits noticed Skin: No rash. - Patient Status Disposition: Home, Self-Care Condition: Good Overall status at discharge: patient is back to baseline - Discharge Instructions Follow Up With: Sascha Baugh MD [Partnered Physician] - (Appointment has been requested.) Marc Rodriguez DO [Partnered Physician] - 12/04/18 10:00 am Errol Briceno MD [Partnered Physician] - 07/02/19 10:30 am Jacquie Cardona DO [Partnered Physician] - 02/12/19 3:10 pm - Diet and Activity Activity: increase activity as tolerated Diet: low salt diet
[2018-12-03 11:43] VITALS: BP 144/79
== END 2018-12-03 13:53 | disposition home or self-care (01) ==
LOC: 3BNU 20:43 → EMEROOARM 20:43 → SUATTDRO 12-02 01:36 → 3BNU 12-02 02:37
PROVIDERS: ADMIT Internal Medicine; ATTEND Family Medicine

== ENCOUNTER 2019-04-08 14:47 | Observation (INO) ==
[2019-04-08] MEDS ORDERED: Ipratropium/Albuterol Neb 3 ML IH ONE (15:04)
[2019-04-08 15:58] LABS: Basophils % 0.5 %; Eosinophils % 4.8 %
[2019-04-08 16:00] LABS: Eosinophils # 0.4 K/mcL (0.0-0.6); Hemoglobin 11.2 g/dL (11.5-15.4); Immature Granulocytes % 0.2 % (0-4); Lymphocytes # 1.6 K/mcL (0.6-4.6); Lymphocytes % 19.2 %; Mean Corpuscular HGB Conc 30.3 g/dL (31.6-35.5); Mean Corpuscular Hemoglobin 29.4 pg (28.0-33.3); Mean Corpuscular Volume 97.1 fL (83.0-100.0); Mean Platelet Volume 9.2 fL (9.4-12.4); Monocytes # 0.6 K/mcL (0.0-1.3); Monocytes % 6.8 %; Platelet Count 229 K/mcL (140-400); Red Blood Count 3.81 M/mcL (3.82-4.97); Red Cell Distribution Width 13.7 % (11.5-14.5); Segmented Neutrophils % 68.5 %; White Blood Count 8.4 K/mcL (4.3-11.1)
[2019-04-08 16:01] LABS: Prothrombin Time 11.6 Seconds (9.4-12.1)
[2019-04-08 16:03] LABS: Activated Partial Thrombo Time 31.7 Seconds (26.0-36.0)
[2019-04-08] MEDS ORDERED: methylPREDNISolone 125 MG/2 ML VIAL IVP ONE (16:06)
[2019-04-08 16:10] LABS: Neutrophils # 5.8 K/mcL (1.6-8.9)
[2019-04-08 16:12] LABS: Bilirubin,Urine Negative (Negative); Blood,Urine Small (Negative); Clarity,Urine Cloudy (Clear); Color,Urine Yellow (Yellow); Glucose,Urine (UA) Normal (Normal); Ketones,Urine Negative (Negative); Leukocyte Esterase,Urine Moderate (Negative); Nitrite,Urine Positive (Negative); Protein,Urine 30 mg/dL (Neg-Trace); Specific Gravity,Urine 1.022 (1.010-1.025); Urobilinogen,Urine Normal (Normal)
[2019-04-08 16:14] LABS: Bacteria,Urine Moderate per hpf (None-Few); Hyaline Casts,Urine None Seen per lpf (None-Few); RBC,Urine 15-30 per hpf (0-3); Squamous Epithelial Cell,Urine Many per lpf (None-Few); WBC,Urine 30-50 per hpf (0-3)
[2019-04-08 16:19] LABS: Alanine Aminotransferase 8 Units/L (7-52); Albumin 3.8 g/dL (3.5-5.7); Albumin/Globulin Ratio 1.1 (1.1-2.2); Alkaline Phosphatase 70 Units/L (34-104); Aspartate Amino Transferase 13 Units/L (13-39); BUN/Creatinine Ratio 28 (6-26); Bilirubin,Direct 0.1 mg/dL (0.0-0.2); Bilirubin,Indirect 0.1 mg/dL (0.0-1.0); Bilirubin,Total 0.2 mg/dL (0.3-1.0); Blood Urea Nitrogen 29 mg/dL (8-23); Calcium 9.6 mg/dL (8.6-10.3); Carbon Dioxide 37 mEq/L (23-29); Chloride 98 mEq/L (98-107); Globulin 3.6 g/dL (2.4-3.5); Glucose 110 mg/dL (70-105); Osmolality,Calculated 298 (280-300); Potassium 5.3 mEq/L (3.5-5.1); Sodium 141 mEq/L (136-145); Total Protein 7.4 g/dL (6.4-8.9); Troponin I < 0.03 ng/mL (< 0.04); eGFR For African Americans > 60 (> 60); eGFR For Non-African Americans 51 (> 60)
[2019-04-08 16:38] LABS: Platelet Estimate Normal (Normal); Stomatocytes 1+ (Not Present)
[2019-04-08] MEDS ORDERED: cefTRIAXone 1,000 MG in 0.9 % Sodium Chloride Mini Bag 100 ML IVPB ONE (16:52)
[2019-04-08] MEDS ORDERED: cefTRIAXone 1,000 MG in Water for inj. (sterile) 10 ML IVP ONE (17:00)
[2019-04-08] MEDS ORDERED: Albuterol 2.5 MG/3 ML NEBULIZER IH PRN (17:41)
[2019-04-08] MEDS: Nystatin Cream 15 GM TUBE TP SCH (20:31)
[2019-04-08] MEDS ORDERED: Insulin LISPRO 300 UNITS/3 ML VIAL SQ SCH (21:00)
[2019-04-08] MEDS: Budesonide/Formoterol 160/4.5 1 PUFF INH IH SCH (21:27)
[2019-04-09 05:25] LABS: ABG Base Excess 7 mEq/L (-2 to 3); ABG HCO3 33 mEq/L (21-27); ABG Oxygen Saturation 97 % (95-98); ABG PCO2 56 mmHg (35-45); ABG PH 7.39 pH Units (7.32-7.45); ABG PO2 99 mmHg (85-104); ABG TCO2 35 mEq/L (20-26)
[2019-04-09 06:13] LABS: BUN/Creatinine Ratio 29 (6-26); Blood Urea Nitrogen 26 mg/dL (8-23); Calcium 9.1 mg/dL (8.6-10.3); Carbon Dioxide 32 mEq/L (23-29); Chloride 99 mEq/L (98-107); Glucose 235 mg/dL (70-105); Osmolality,Calculated 298 (280-300); Potassium 4.6 mEq/L (3.5-5.1); Sodium 138 mEq/L (136-145); eGFR For African Americans > 60 (> 60); eGFR For Non-African Americans > 60 (> 60)
[2019-04-09 07:06] LABS: Estimated Average Glucose 154 mg/dl
[2019-04-09] MEDS: Insulin LISPRO 300 UNITS/3 ML VIAL SQ SCH ×2 (07:49→11:43)
[2019-04-09] MEDS: Nystatin Cream 15 GM TUBE TP SCH (07:52)
[2019-04-09] MEDS ORDERED: carvediloL 6.25 MG TABLET PO SCH (08:00)
[2019-04-09] MEDS: Budesonide/Formoterol 160/4.5 1 PUFF INH IH SCH (08:02)
[2019-04-09] MEDS ORDERED: Aspirin Enteric Coated 81 MG Tablet PO SCH (09:00)
[2019-04-09] MEDS ORDERED: Lactobacillus 1 EACH CAP.SPRINK PO SCH (09:00)
[2019-04-09] MEDS ORDERED: Furosemide 40 MG TABLET PO SCH (09:00)
[2019-04-09 15:40] VITALS: BP 146/67
[2019-04-09] MEDS ORDERED: cephALEXin 500 MG CAPSULE PO SCH (21:00)
== END 2019-04-09 19:05 | disposition home or self-care (01) ==
LOC: EMEROOARM 14:47 → 3BNU 14:47 → SUATTDRO 17:20 → 3BNU 18:11
PROVIDERS: ADMIT Internal Medicine; ATTEND Family Medicine